=== PATIENT | female | born 1965 | race African-American/Black ===

== ENCOUNTER 2017-05-07 13:48 | Emergency (ER) | payer OTHER ==
[~2017-05-07] VITALS: Ht 160 cm; Wt 90.7 kg
[~2017-05-07 13:48] MED LIST: OLME20TA14 PO
--- NOTE | 2017-05-07 13:48 | NUR ---
Patient BIBA BLS, transferred to bed 7. RN evaluating patient at bedside.
--- NOTE | 2017-05-07 13:49 | NUR ---
51F BIBA FROM SNF C/O LEFT KNEE PAIN, NON-RADIATING, THROBBING, 6 X TODAY S/P FALL; PT STATES " I WAS TRYING TO CATCH THE GROCERSY BASKET AND FELL"; PT STATES NO LOC AT TIME OF FALL; NO SWELLING OR ERYTHEMA NOTED TO LEFT KNEE AT THIS TIME; LEFT PEDAL PULSE PALPABLE, LEFT CAP REFILL < 2 SECONDS, NO LOSS OF SENSATION TO LEFT LEG AT THIS TIME; PT NOTED WITH SMALL LACERATION TO ANTERIOR FOREHEAD AND SMALL ABRASION TO RT ELBOW; NO ACTIVE BLEEDING NOTED TO SITES AT THIS TIME. PT AA&OX4, PERRLA, BL LUNG SOUNDS CLEAR, RR EVEN/UNLABORED, SKIN IS WARM/DRY AT THIS TIME; PT STATES NO N/V/D AT THIS TIME. PT NOTED WITH PARALYSIS TO LEFT HAND FROM PREVIOUS STROKE. PT RESTING IN BED WITH HOB ELEVATED AND IN LOWEST POSITION; POSITIONED FOR COMFORT; ER MD MADE AWARE OF STATUS. WILL CONTIUE TO MONITOR.
--- NOTE | 2017-05-07 13:50 | NUR ---
Dr. Servin evaluating patient at bedside.
[2017-05-07 13:51] VITALS: BP 117/84
[2017-05-07] MEDS ORDERED: NEOMYCIN/POLYMYXIN/BACITRACIN 0.9 GM/1 PKT TP ONE (14:10)
--- NOTE | 2017-05-07 14:21 | NUR ---
PT TAKEN TO CT VIA W/C PER DIRECTOR PAID MEDIA.
[2017-05-07] MEDS ORDERED: ACETAMINOPHEN EXTRA STRENGTH 500 MG TAB PO ONE (15:35)
[2017-05-07 15:46] VITALS: BP 109/79
--- NOTE | 2017-05-07 15:46 | NUR ---
Patient discharged with v/s stable. Written and verbal after care instructions given and explained. Patient verbalized understanding. Wheel Chair Assisted to car. All questions addressed prior to discharge. Advised to follow up with PMD.
== END 2017-05-07 15:46 | disposition home or self-care (01) ==
LOC: MED 13:48
DX: S09.90XA Unspecified injury of head, initial encounter (principal); I10 Essential (primary) hypertension; Z86.73 Personal history of transient ischemic attack (TIA), and cerebral infarction without residual deficits; W18.30XA Fall on same level, unspecified, initial encounter; Y93.89 Activity, other specified; Y92.89 Other specified places as the place of occurrence of the external cause; Y99.8 Other external cause status
CPT/HCPCS: 70450; 99284

== ENCOUNTER 2017-06-28 12:57 | Emergency (ER) | payer OTHER ==
[~2017-06-28] VITALS: Ht 165.1 cm; Wt 90.3 kg
[~2017-06-28 12:57] MED LIST changes: -OLME20TA14 PO; +OLME20TA22 PO
--- NOTE | 2017-06-28 12:57 | NUR ---
Patient BIBA BLS, transferred to bed 4. RN evaluating patient at bedside.
[2017-06-28 13:05] VITALS: BP 151/98
--- NOTE | 2017-06-28 13:06 | NUR ---
Dr. Tripp evaluating patient at bedside.
[2017-06-28] MEDS ORDERED: HYDROmorphone PFS 2 MG/ML SYR IM ONE (13:20)
[2017-06-28] MEDS ORDERED: KETOROLAC 60 MG/2 ML VIAL IM ONE (13:20)
--- NOTE | 2017-06-28 13:20 | NUR ---
PATIENT IS A 51 YO FEMALE BIB EMS FROM [facility] AWAKE AND ALERT NO DEFORMITY OR SWELLING. TO BED 4 MD AT BEDSIDE
--- NOTE | 2017-06-28 13:59 | NUR ---
Patient taken to XRAY via wheelchair by tech.
--- NOTE | 2017-06-28 14:23 | NUR ---
Patient returned from XRAY. RN re-evaluating patient at bedside.
--- NOTE | 2017-06-28 15:18 | NUR ---
Immoblized and sling dispensed. Taught proper use, patient returned demo.
[2017-06-28 15:24] VITALS: BP 149/91
== END 2017-06-28 15:24 | disposition home or self-care (01) ==
LOC: MED 12:57
DX: M25.532 Pain in left wrist (principal); M79.642 Pain in left hand; Z86.73 Personal history of transient ischemic attack (TIA), and cerebral infarction without residual deficits; I10 Essential (primary) hypertension
CPT/HCPCS: 29125; 73110; 73130; 96372; 99284; J1170; J1885

== ENCOUNTER 2018-02-13 19:50 | Inpatient (IN) | payer OTHER ==
[~2018-02-13] VITALS: Ht 162.6 cm; Wt 99.3 kg
[2018-02-13 19:50] VITALS: BP 111/63
[~2018-02-13 19:50] MED LIST changes: +OLME20TA11 PO; -OLME20TA22 PO
--- NOTE | 2018-02-13 19:50 | NUR ---
PT GAGANDEEP BLS. TAKEN TO BED 6
--- NOTE | 2018-02-13 19:50 | NUR ---
PATIENT PRESENTS TO ED WITH SYNCOPAL EPISODE AT HOME. PT STATES SHE WOKE UP ON THE FLOOR AT HOME. NOW C/O RIGHT THUMB AND LEFT ANKLE PAIN. DENIES N/V/D; SKIN IS PINK/WARM/DRY; AAOX4; UNABLE TO AMBULATE; LUNGS CLEAR BL; HR EVEN AND REGULAR; PT DENIES ANY FEVER, CP, SOB, OR COUGH AT THIS TIME; PATIENT STATES PAIN OF 6/10 AT THIS TIME; VSS; PATIENT POSITIONED FOR COMFORT; HOB ELEVATED; BEDRAILS UP X2; BED DOWN. ER MD MADE AWARE OF PT STATUS. CONTINUE TO MONITOR.
--- NOTE | 2018-02-13 20:48 | NUR ---
PT TAKEN TO XRAY
--- NOTE | 2018-02-13 21:02 | NUR ---
PT RETURN FROM XRAY
[2018-02-13 21:21] LABS: BASOPHILS # (AUTO) 0.1 K/uL (0.00-0.22); BASOPHILS % (AUTO) 0.6 % (0.0-2.0); EOSINOPHILS # (AUTO) 0.2 K/uL (0-0.4); HEMATOCRIT 41.3 % (36-48); LYMPHOCYTES # (AUTO) 2.1 K/uL (2.5-16.5); LYMPHOCYTES % (AUTO) 22.8 % (20.5-51.1); MEAN CORPUSCULAR HEMOGLOBIN 29 pg (27-31); MEAN CORPUSCULAR HGB CONC 34 g/dL (33-37); MEAN CORPUSCULAR VOLUME 84.3 fL (80-94); MONOCYTES # (AUTO) 0.4 K/uL (0.8-1.0); MONOCYTES % (AUTO) 4.9 % (1.7-9.3); NEUTROPHILS # (AUTO) 6.3 K/uL (1.8-7.7); NEUTROPHILS % (AUTO) 69.7 % (42.2-75.2); PLATELET COUNT (AUTO) 256 K/uL (140-450); RED CELL DISTRIBUTION WIDTH 12.6 % (11.6-13.7)
[2018-02-13 22:03] LABS: ANION GAP 14.4 (8-16); CREATININE 0.9 mg/dL (0.6-1.3); POTASSIUM 3.4 mmol/L (3.5-5.1)
[2018-02-13 22:20] LABS: TOTAL BILIRUBIN 0.2 mg/dL (0.0-1.0)
[2018-02-13 22:21] LABS: ALBUMIN 3.6 g/dL (3.4-5.0)
--- NOTE | 2018-02-13 23:25 | NUR ---
Dr. Flores evaluating patient at bedside.
[2018-02-14] MEDS ORDERED: POLYETHYLENE GLYCOL 17 GM/PKT PO ONE (00:20)
[2018-02-14 01:42] LABS: APPEARANCE,URINE HAZY (CLEAR); BILIRUBIN,URINE NEGATIVE (NEGATIVE); BLOOD, URINE NEGATIVE (NEGATIVE); COLOR,URINE YELLOW (YELLOW); LEUKOCYTE ESTERASE ,URINE NEGATIVE (NEGATIVE); NITRITE, URINE NEGATIVE (NEGATIVE); UGLUCOSE NEGATIVE (NEGATIVE)
[2018-02-14 01:50] LABS: RBC,URINE 0-5 (RARE) /HPF (0-5)
[2018-02-14] MEDS ORDERED: PIPERACILLIN/TAZOBACTAM 3.375 GM in DEXTROSE 5% 50 ML IV ONE (02:55)
[2018-02-14] MEDS ORDERED: NACL 0.9% 1,000 ML IV ONE (02:55)
[2018-02-14] MEDS ORDERED: PIPERACILLIN/TAZOBACTAM 3.375 GM VIAL IV ONE (03:15)
[2018-02-14] MEDS ORDERED: ACETAMINOPHEN 325 MG TAB PO PRN (03:45)
[2018-02-14] MEDS ORDERED: MORPHINE SULFATE 4 MG/ML SYR IVP PRN (03:45)
[2018-02-14] MEDS ORDERED: MORPHINE SULFATE 2 MG/ML SYR IVP PRN (03:45)
[2018-02-14] MEDS ORDERED: METOCLOPRAMIDE 10 MG/2 ML INJ VIAL IVP PRN (03:45)
--- NOTE | 2018-02-14 04:15 | NUR ---
RECEIVED A 52 Y/O FEMALE PATIENT FROM WITH CHIEF COMPLAIN OF SYNCOPE. PATIENT IS A&OX4, AMBULATORY WITH LEFT SIDED WEAKNESS. SKIN INTACT. MRSA NASAL DONE. PERSONAL BELONGINGS AT BEDSIDE. ROUTINE ADMISSION CARE DONE AND CARRY OUT ORDERS. DISCUSS PLAN OF CARE TO THE PATIENT AND VERBALIZED UNDERSTANDING. FALL PRECAUTION IMPLEMENTED. CALL LIGHT WITHIN REACH. ALL NEEDS ATTENDED. WILL CONTINUE TO MONITOR.
--- NOTE | 2018-02-14 04:27 | NUR ---
Pt report given to Maria Esther RN room 105A. Transfer of care at this time.
[2018-02-14] MEDS: NACL 0.9% 1,000 ML IV SCH ×2 (04:39→13:41)
--- NOTE | 2018-02-14 06:43 | NUR ---
PATIENT HAS BEEN SCREENED AND CATEGORIZED LOW NUTRITION RISK. PATIENT WILL BE SEEN WITHIN 7 DAYS OF ADMISSION. 02/20/18 ALEJANDRO CHEN MS, RDN
--- NOTE | 2018-02-14 07:30 | NUR ---
GAVE REPORT AT PATIENT BEDSIDE TO AM SHIFT NURSE FOR CONTINUITY OF CARE. PATIENT IN STABLE CONDITION.
--- NOTE | 2018-02-14 07:35 | NUR ---
RECEIVED PT FROM LOG HANDLER, PT IS AWAKE ,LYING ON THE BED, AWAKE, ALERT AND ORIENTEDX4, CARE PLAN HAS BEEN DISCUSSED AND PT VERBALIZED UNDERSTANDING. PT HAS AN IV LINE ON THE LEFT HAND G. 22 WITH NS RUNNING AT 100ML/HR, INTACT.SIDE RAILS ARE UP AND CALL LIGHT WITHIN REACH. NO SIGN OF DISTRESS NOTED AND WILL CONTINUE TO MONITOR. PT IS ON NPO OF THIS TIME.
--- NOTE | 2018-02-14 07:50 | NUR ---
ASSISTED PT TO THE BATHROOM TO SILVERE, PT HAS AN UNSTEADY GAIT AND HAS WEAKNESS ON HER LEFT SIDE. PT WAS ASSISTED BACK TO BED AND A BEDSIDE COMMODE WAS PLACED. SIDE RAILS ARE UP AND CALL LIGHT WITHIN REACH. WILL CONTINUE TO MONITOR.
[2018-02-14 08:00] VITALS: BP 140/88
--- NOTE | 2018-02-14 08:00 | NUR ---
PT IS AWAKE AND TALKING OVER THE PHONE, LEADS FOR THE HEART WERE CHECKED AND CHANGED. VITAL SIGNS TAKEN AND IS STABLE. NO SIGN OF DISTRESS NOTED AND WILL CONTINUE TO MONITOR.
[2018-02-14 12:00] VITALS: BP 139/57
--- NOTE | 2018-02-14 12:01 | NUR ---
RECEIVED A CALL FROM DR. PAZ AND ASKED THE MD REGARDING THE PT' BEING ON NPO. DR. PAZ ORDERED A CLEAR LIQUID DIET FOR THE PT AND TOLD TO OBSERVE. TELEPHONE ORDER ACKNOWLEDGED AND READ BACK.
--- NOTE | 2018-02-14 12:17 | NUR ---
PT IS AWAKE AND VERBALIZED A PAIN RATE OF 8/10. MEDICATION GIVEN AND PT TOLERATED IT. VITAL SIGNS TAKEN AND NO SIGN OF DISTRESS NOTED. WILL CONTINUE TO MONITOR.
--- NOTE | 2018-02-14 14:16 | NUR ---
DR. PAZ SPOKE AND ASSESSED THE PT, AND PT RESPONDED APPROPRIATELY. DR. PAZ SAID THAT IF PT CAN TOLERATE THE CLEAR LIQUID DIET WITH NO NAUSEA AND VOMITING, THE PT CAN GO HOME AND WILL JUST SEE HER IN HIS CLINIC. 'S STATEMENT ACKNOWLEDGED.
--- NOTE | 2018-02-14 14:25 | NUR ---
DR. LARIOS SAW AND SPOKE TO THE PT. PT HAS NO SIGN OF DISTRESS.
--- NOTE | 2018-02-14 14:52 | NUR ---
ACKNOWLEDGED A DISCHARGE ORDER FOR THE PT FROM DR. LARIOS. WILL FACILITATE DISCHARGE PROCESS.
[2018-02-14 16:00] VITALS: BP 140/90
--- NOTE | 2018-02-14 16:00 | NUR ---
PT IS AWAKE AND SEATED ON THE BED, VITAL SIGNS TAKEN AND IS STABLE. NO SIGN OF DISTRESS NOTED. WILL MONITOR.
--- NOTE | 2018-02-14 17:30 | NUR ---
PT IS AWAKE AND SEATED ON THE BED, ASKED FOR A SANDWICH AND WAS GIVEN ONE. PT TOLERATED IT WITH NO SIGN OF NAUSEA AND VOMITING.
--- NOTE | 2018-02-14 18:00 | NUR ---
DISCHARGED PT VIA WHEELCHAIR WITH THE SON-IN-LAW. DISCHARGE INSTRUCTIONS AND TEACHING GIVEN. ARM BAND AND IV LINE REMOVED. PT IS STABLE AND PAIN FREE AT THIS TIME.
--- NOTE | 2018-02-16 09:01 | NUR ---
RETRO ER REPORT, H&P AND CONSULT FAXED TO [facility] [phone] PHONE MACARIO [phone]
== END 2018-02-14 18:00 | disposition home or self-care (01) | DRG 244 ==
LOC: MED 19:50 → MTU 02-14 03:41
PROVIDERS: ADMIT Hospitalist; ATTEND Hospitalist
DX: K57.90 Diverticulosis of intestine, part unspecified, without perforation or abscess without bleeding (principal); R56.9 Unspecified convulsions; R10.9 Unspecified abdominal pain; R55 Syncope and collapse; I10 Essential (primary) hypertension; E66.9 Obesity, unspecified; F17.210 Nicotine dependence, cigarettes, uncomplicated; F12.90 Cannabis use, unspecified, uncomplicated; Z86.73 Personal history of transient ischemic attack (TIA), and cerebral infarction without residual deficits; Z68.37 Body mass index [BMI] 37.0-37.9, adult; Z79.899 Other long term (current) drug therapy
CPT/HCPCS: 36415; 70450; 71046; 73130; 80053; 81001; 83880; 84484; 85025; 85379; 87081; 87086; 93005; 96365; 99285; J2270; J2543; J7030

== ENCOUNTER 2018-03-14 22:30 | Emergency (ER) | payer OTHER ==
[~2018-03-14] VITALS: Ht 165.1 cm; Wt 89.5 kg
[2018-03-14 22:39] VITALS: BP 147/90
--- NOTE | 2018-03-14 22:43 | NUR ---
TO BED #6 VIA SCOOTER , REPORT GIVEN TO AYE SHUKLA
--- NOTE | 2018-03-14 22:50 | NUR ---
PT BIB SELF C/O HEADACHE, S/P FALL FROM ELECTRIC WHEELCHAIR YESTERDAY. PT GCS 15, PERRLA 3/2MM BILAT. PT STATES SHE HAD A STROKE 7 YEARS AGO, WITH LEFT ARM DEFICITS. PT STATES LEFT ARM IS CONTRACTED, UNABLE TO OPEN LEFT HAND. NO FACIAL ASYMMETRY NOTED, NO DROOLING, NO POOLING OF SECRETIONS. NO TONGUE DEVIATION, NO SLURRING OF SPEECH, PT ABLE TO TALKING IN FULL COMPLETE SENTENCES WITHOUT ANY COMPLAINT. PT WAS ABLE TO STAND AND WALK 5 STEPS FORWARD WITH STEADY GAIT. PT ALERT AND ORIENTED, ABLE TO FOLLOW COMMANDS. PT PLACED IN BED 6. HR 85 BPM, ON CM. PT BREATHING IS UNLABORED AND EVEN, CTA, BILAT. PT ABD IS SOFT, NON TENDER TO PALP. SIDE RAILS UP X2 FOR PT SAFETY. BED IN LOWEST POSITION. WILL CONTINUE TO MONITOR
[2018-03-14] MEDS ORDERED: KETOROLAC 30 MG/ML VIAL IM ONE (23:05)
--- NOTE | 2018-03-15 00:50 | NUR ---
Patient discharged with v/s stable. Written and verbal after care instructions given and explained. Patient alert, oriented and verbalized understanding of instructions. Wheel Chair Assisted with steady gait. All questions addressed prior to discharge. ID band removed. Patient advised to follow up with PMD. Rx of motrin 800mg given. Patient educated on indication of medication including possible reaction and side effects. Opportunity to ask questions provided and answered.
[2018-03-15 00:51] VITALS: BP 132/78
== END 2018-03-15 00:50 | disposition home or self-care (01) ==
LOC: MED 22:30
DX: S09.90XA Unspecified injury of head, initial encounter (principal); E11.9 Type 2 diabetes mellitus without complications; I10 Essential (primary) hypertension; Z86.73 Personal history of transient ischemic attack (TIA), and cerebral infarction without residual deficits; Z79.899 Other long term (current) drug therapy; W05.0XXA Fall from non-moving wheelchair, initial encounter; Y93.89 Activity, other specified; Y92.89 Other specified places as the place of occurrence of the external cause; Y99.8 Other external cause status
CPT/HCPCS: 70450; 96372; 99284; J1885

== ENCOUNTER 2018-05-24 19:22 | Emergency (ER) | payer OTHER ==
[~2018-05-24] VITALS: Ht 167.6 cm; Wt 86.2 kg
[2018-05-24 19:22] VITALS: BP 107/66
[2018-05-24] MEDS ORDERED: PHENYTOIN 100 MG CAPER PO ONE (19:55)
[2018-05-24 20:27] LABS: BASOPHILS % (AUTO) 0.6 % (0.0-2.0); EOSINOPHILS # (AUTO) 0.2 K/uL (0-0.4); EOSINOPHILS % (AUTO) 2.7 % (0.0-4.0); HEMATOCRIT 41.1 % (36-48); HEMOGLOBIN 13.5 g/dL (12.0-16.0); LYMPHOCYTES # (AUTO) 1.9 K/uL (2.5-16.5); LYMPHOCYTES % (AUTO) 25.4 % (20.5-51.1); MEAN CORPUSCULAR HEMOGLOBIN 29 pg (27-31); MEAN CORPUSCULAR HGB CONC 33 g/dL (33-37); MEAN CORPUSCULAR VOLUME 86.8 fL (80-94); MONOCYTES # (AUTO) 0.5 K/uL (0.8-1.0); MONOCYTES % (AUTO) 6.8 % (1.7-9.3); NEUTROPHILS # (AUTO) 4.9 K/uL (1.8-7.7); NEUTROPHILS % (AUTO) 64.5 % (42.2-75.2); PLATELET COUNT (AUTO) 233 K/uL (140-450); RED BLOOD CELL COUNT(AUTO) 4.73 MIL/uL (4.20-5.40); RED CELL DISTRIBUTION WIDTH 13.9 % (11.6-13.7); WHITE BLOOD COUNT (AUTO) 7.7 K/uL (4.8-10.8)
[2018-05-24 20:36] LABS: ANION GAP 11.1 (8-16); CARBON DIOXIDE 26.6 mmol/L (21-32); CREATININE 0.9 mg/dL (0.6-1.3); POTASSIUM 3.7 mmol/L (3.5-5.1)
[2018-05-24] MEDS ORDERED: MORPHINE SULFATE 4 MG/ML SYR IVP ONE (20:45)
[2018-05-24] MEDS ORDERED: ONDANSETRON 4 MG/2 ML VIAL IVP ONE (20:45)
[2018-05-24 22:51] VITALS: BP 123/79
== END 2018-05-24 22:51 | disposition home or self-care (01) ==
LOC: MED 19:22
DX: G40.509 Epileptic seizures related to external causes, not intractable, without status epilepticus (principal); E11.9 Type 2 diabetes mellitus without complications; I10 Essential (primary) hypertension; Z86.73 Personal history of transient ischemic attack (TIA), and cerebral infarction without residual deficits; Z79.899 Other long term (current) drug therapy
CPT/HCPCS: 36415; 71045; 80048; 80185; 82948; 85025; 93005; 96374; 96375; 99285; J2270; J2405; Q0092

== ENCOUNTER 2019-02-10 13:15 | Emergency (ER) | payer OTHER ==
[~2019-02-10] VITALS: Ht 172.7 cm; Wt 113.6 kg
[2019-02-10 13:32] VITALS: BP 147/82
--- NOTE | 2019-02-10 13:32 | NUR ---
pt to er bed 8 via w/c
--- NOTE | 2019-02-10 13:42 | NUR ---
PT BIB SELF VIA W/C C/O LT FOOT/LEG PAIN X 2 WEEKS. PT WAS SEEN AT [facility] 3 DAYS AGO FOR SAME S/S. PT DENIES N/V/D; SKIN IS INTACT, PALE/WARM/DRY; AAOX4, PERRL, UNSTEADY GAIT- 10/10 PAIN LT FOOT/LEG WITH +4 PITTED EDEMA; LUNGS CLEAR BL, BREATHING UNLABORED; HR EVEN AND REGULAR, BL PERIPHERAL PULSES PRESENT; BS ACTIVE X4, NO TENDERNESS TO PALPATION. PT DENIES ANY FEVER, CP, SOB, OR COUGH AT THIS TIME; PT STATES 10/10 PAIN AT THIS TIME; VSS; PATIENT POSITIONED FOR COMFORT; HOB ELEVATED; BEDRAILS UP X2; BED DOWN.
--- NOTE | 2019-02-10 13:53 | NUR ---
PT BEING EVALUATED BY ER AT THIS TIME.
--- NOTE | 2019-02-10 15:50 | NUR ---
PT APPEARED RELAXED AND RESTING IN BED. NO SOB OR ACUTE RESPIRATORY DISTRESS NOTED. NO CHANGE IN LOC. VSS.
--- NOTE | 2019-02-10 16:46 | NUR ---
Patient discharged with v/s stable. Written and verbal after care instructions given and explained. Patient alert, oriented and verbalized understanding of instructions. All questions addressed prior to discharge. ID band removed. Patient advised to follow up with PMD. Rx of NORCO 5MG-325MG given. Patient educated on indication of medication including possible reaction and side effects. Opportunity to ask questions provided and answered.
[2019-02-10 16:49] VITALS: BP 156/99
== END 2019-02-10 16:46 | disposition home or self-care (01) ==
LOC: MED 13:15
DX: S92.355A Nondisplaced fracture of fifth metatarsal bone, left foot, initial encounter for closed fracture (principal); E11.9 Type 2 diabetes mellitus without complications; I10 Essential (primary) hypertension; Z86.73 Personal history of transient ischemic attack (TIA), and cerebral infarction without residual deficits; Z79.899 Other long term (current) drug therapy; X58.XXXA Exposure to other specified factors, initial encounter; Y93.89 Activity, other specified; Y92.89 Other specified places as the place of occurrence of the external cause; Y99.8 Other external cause status
CPT/HCPCS: 29515; 73610; 73630; 99283; Q0092

== ENCOUNTER 2019-04-03 16:42 | Emergency (ER) | payer OTHER ==
[~2019-04-03] VITALS: Ht 165.1 cm; Wt 89.0 kg
[2019-04-03 16:48] VITALS: BP 137/89
[2019-04-03] MEDS ORDERED: methylPREDNISolone SS 125 MG in WATER STERILE 2 ML IV ONE (16:55)
[2019-04-03] MEDS ORDERED: diphenhydrAMINE 50 MG/ML VIAL IVP ONE (16:55)
[2019-04-03] MEDS ORDERED: EPINEPHrine 1:1000 - 1 MG/ML AMP SUBQ ONE (16:55)
--- NOTE | 2019-04-03 17:00 | NUR ---
PT AMBULATED TO BED 7 AT THIS TIME
[2019-04-03] MEDS ORDERED: LIDOCAINE 1% 500 MG/50 ML VIAL INJ SCH ×2 (17:20→17:25)
[2019-04-03] MEDS ORDERED: ETHYL CHLORIDE 105 ML SPR TP ONE ×2 (17:20→17:30)
--- NOTE | 2019-04-03 17:22 | NUR ---
ETHYL CHLORIDE AND LIDOCAINE AT BEDSIDE FOR ERMD TO ADMINISTER
--- NOTE | 2019-04-03 17:26 | NUR ---
PT C/O RT 1ST DIGIT PAIN X4 DAYS. PT REPORTS CONSTANT 10/10 THROBING PAIN THAT INCREASES WITH MOVEMENT. BASE OF THUMB IS SWOLLEN WITH REDNESS. DENIES NAUSEA, VOMITING, OR FEVER AT THIS TIME. VSS; PATIENT POSITIONED FOR COMFORT; HOB ELEVATED; BEDRAILS UP X1; BED DOWN. ER MD MADE AWARE OF PT STATUS.
[2019-04-03] MEDS ORDERED: LIDOCAINE MPF 1% - 5 mL VIAL 5 ML ONE (17:31)
[2019-04-03 18:00] VITALS: BP 121/80
--- NOTE | 2019-04-03 18:00 | NUR ---
Pt was discharged by Dr. Hamilton with v/s stable. Written and verbal after care instructions given and explained. Patient alert, oriented and verbalized understanding of instructions. Ambulatory with steady gait. All questions addressed prior to discharge. ID band removed. Patient advised to follow up with PMD. Rx of Keflex given. Patient educated on indication of medication including possible reaction and side effects. Opportunity to ask questions provided and answered.
== END 2019-04-03 18:00 | disposition home or self-care (01) ==
LOC: MED 16:42
DX: L03.011 Cellulitis of right finger (principal); I10 Essential (primary) hypertension; E11.9 Type 2 diabetes mellitus without complications; I69.952 Hemiplegia and hemiparesis following unspecified cerebrovascular disease affecting left dominant side; Z86.79 Personal history of other diseases of the circulatory system; Z79.899 Other long term (current) drug therapy
CPT/HCPCS: 10060; 99283; J2001

== ENCOUNTER 2020-01-05 01:10 | Emergency (ER) | payer OTHER ==
[~2020-01-05] VITALS: Ht 157.5 cm; Wt 68.0 kg
[2020-01-05 01:10] VITALS: BP 129/69
--- NOTE | 2020-01-05 01:10 | NUR ---
PT GAGANDEEP KOEHLERS. TAKEN TO BED 4
--- NOTE | 2020-01-05 01:10 | NUR ---
Dr. Yeung examining patient.
[2020-01-05] MEDS ORDERED: MORPHINE SULFATE 4 MG/ML SYR IM ONE (01:15)
--- NOTE | 2020-01-05 01:15 | NUR ---
ASSESSMENT DONE AT THIS TIME. 54 YEAR OLD FEMALE BIBA AFTER MECHANICAL FALL X 20MINS AGO. PER PATIENT SHE FELT THAT SHE HEARD A POP WHEN TRYING TO BREAK FALL WITH LEFT ARM. PATIENT STATES THERE IS PAIN THROUGHOUT LEFT ARM BUT MOSTLY AROUND WRIST AREA. PATIENT STATES SHE DOES NOT REMEMBER IF LOC, NO WITNESSES TO FALL. PT STATES SHE IS UNABLE TO MOVE LEFT ARM DUE TO STROKE X 10 YEARS AGO. PT STATES SHE HAS SENSATION IN LEFT HAND, +2 RADIAL PULSE, CAP REFILL < 3 SECS. PATIENT AOX4, BREATHING EVEN AND UNLABORED, SKIN WARM AND DRY. BED IN LOWEST POSITION, LOCKED, BED RAIL UPX1. PMH - HTN, STROKE X 10 YEARS AGO ALLERGIES - NKA
[2020-01-05] MEDS ORDERED: MORPHINE SULFATE 4 MG/ML SYR ONE (01:21)
--- NOTE | 2020-01-05 01:26 | NUR ---
Jem shepherd in [facility] - 01/05/20 at 0127 by JESSE AMANDA AT BEDSIDE
--- NOTE | 2020-01-05 01:26 | NUR ---
X-Ray at bedside.
--- NOTE | 2020-01-05 01:47 | NUR ---
Note meganone in EDM - 01/05/20 at 0225 by PadletISAIAS 54 YEAR OLD FEMALE BIBA AFTER MECHANICAL FALL X 20MINS AGO. PER PATIENT SHE FELT THAT SHE HEARD A POP WHEN TRYING TO BREAK FALL WITH LEFT ARM. PATIENT STATES THERE IS PAIN THROUGHOUT LEFT ARM BUT MOSTLY AROUND WRIST AREA. PATIENT STATES SHE DOES NOT REMEMBER IF LOC, NO WITNESSES TO FALL. PT STATES SHE IS UNABLE TO MOVE LEFT ARM DUE TO STROKE X 10 YEARS AGO. PT STATES SHE HAS SENSATION IN LEFT HAND, +2 RADIAL PULSE, CAP REFILL < 3 SECS. PATIENT AOX4, BREATHING EVEN AND UNLABORED, SKIN WARM AND DRY. BED IN LOWEST POSITION, LOCKED, BED RAIL UPX1. PMH - HTN, STROKE X 10 YEARS AGO ALLERGIES - NKA
--- NOTE | 2020-01-05 02:50 | NUR ---
Patient discharged with v/s stable. Written and verbal after care instructions about wrist fracture given and explained. Patient alert, oriented and verbalized understanding of instructions. Ambulatory with steady gait. All questions addressed prior to discharge. ID band removed. Patient advised to follow up with PMD. Rx of motrin and norco given. Patient educated on indication of medication including possible reaction and side effects. Opportunity to ask questions provided and answered.
--- NOTE | 2020-01-05 02:50 | NUR ---
[facility] CALLED FOR PT, STATES THEY WILL NEED ATLEAST AN HOUR TO ARRIVE.
--- NOTE | 2020-01-05 03:00 | NUR ---
PATIENT ALERT AND AWAKE, BREATHING EVEN AND UNLABORED. + 2 RADIAL PULSE IN LEFT ARM AFTER SLING APPLICATION, CAP REFILL < 3 SEC
--- NOTE | 2020-01-05 03:25 | NUR ---
PLACED PT IN SINGLE SUGARTONG SPLINT ON PT'S LEFT WRIST AND WRAPED WITH 3" LOLA WRAP. CHECKED PMSC'S BEFORE AND AFTER WITHOUT INCIDENT, ALSO PLACED PT IN SLING TO IMMOBILZE EXTREMITY, PLACED PT IN POSITON OF COMFORT WITHOUT INCIDENT.
--- NOTE | 2020-01-05 04:00 | NUR ---
PATIENT RESTING WITH EYES CLOSED, BREATHING EVEN AND UNLABORED
--- NOTE | 2020-01-05 05:22 | NUR ---
PATIENT RESTING WITH EYES CLOSED, BREATHING EVEN AND UNLABORED
--- NOTE | 2020-01-05 05:39 | NUR ---
PT STATES SHE WOULD RATHER WALK HOME NOW BECAUSE IT IS NOT DARK OUTSIDE AND DOES NOT WANT A TAXI
[2020-01-05 05:40] VITALS: BP 152/92
--- NOTE | 2020-01-05 05:44 | NUR ---
PT LEFT FACILITY WITH EVEN AND STEADY GAIT.
== END 2020-01-05 02:05 | disposition home or self-care (01) ==
LOC: MED 01:10
DX: S52.502A Unspecified fracture of the lower end of left radius, initial encounter for closed fracture (principal); E11.9 Type 2 diabetes mellitus without complications; I10 Essential (primary) hypertension; Z86.73 Personal history of transient ischemic attack (TIA), and cerebral infarction without residual deficits; Z79.899 Other long term (current) drug therapy; W18.30XA Fall on same level, unspecified, initial encounter; Y93.89 Activity, other specified; Y92.89 Other specified places as the place of occurrence of the external cause; Y99.8 Other external cause status
CPT/HCPCS: 29125; 73090; 99283; J2270; Q0092

== ENCOUNTER 2020-03-05 16:24 | Emergency (ER) | payer OTHER ==
[~2020-03-05] VITALS: Ht 165.1 cm; Wt 95.3 kg
[2020-03-05 16:50] VITALS: BP 125/69
--- NOTE | 2020-03-05 16:59 | NUR ---
PT AMBULATED TO ER BED 11
[2020-03-05] MEDS ORDERED: KETOROLAC 30 MG/ML VIAL IM ONE (17:10)
--- NOTE | 2020-03-05 17:21 | NUR ---
c/o right ear pain cotton ball left in there after cleaning ear with q-tip;
[2020-03-05 17:48] VITALS: BP 125/69
--- NOTE | 2020-03-05 17:48 | NUR ---
Patient discharged with v/s stable. Written and verbal after care instructions given and explained. Patient alert, oriented and verbalized understanding of instructions. Ambulatory with steady gait. All questions addressed prior to discharge. ID band removed. Patient advised to follow up with PMD. Rx of AUGMENTIN & IBUPROFEN given. Patient educated on indication of medication including possible reaction and side effects. Opportunity to ask questions provided and answered.
== END 2020-03-05 17:48 | disposition home or self-care (01) ==
LOC: MED 16:24
DX: T16.1XXA Foreign body in right ear, initial encounter (principal); H66.91 Otitis media, unspecified, right ear; E11.9 Type 2 diabetes mellitus without complications; I10 Essential (primary) hypertension; Z86.73 Personal history of transient ischemic attack (TIA), and cerebral infarction without residual deficits; Z79.899 Other long term (current) drug therapy; X58.XXXA Exposure to other specified factors, initial encounter; Y93.89 Activity, other specified; Y92.89 Other specified places as the place of occurrence of the external cause; Y99.8 Other external cause status
CPT/HCPCS: 69200; 96372; 99284; J1885

== ENCOUNTER 2020-04-28 16:31 | Emergency (ER) | payer OTHER ==
[~2020-04-28] VITALS: Ht 160 cm; Wt 90.7 kg
--- NOTE | 2020-04-28 16:31 | NUR ---
Patient BIBA BLS, transferred to bed 10. RN evaluating the patient at bedside.
[2020-04-28 16:46] VITALS: BP 137/94
--- NOTE | 2020-04-28 16:46 | NUR ---
54 Y/O F BIBA FROM HOME C/C HEADACHE X TODAY. PER PT WORSE HEADACHE OF HER LIFE, 10/10 PAIN, FRONTAL AREA. PT PRESENTS VSS,EUPNIC,A/OX4. LEFT SIDED WEAKNESS NOTED ON LUE AND LLE. PER EMS AND PT HX OF STROKE 8 YEARS AGO. PT NKA. HX HTN,SZ,STROKE HEMORRAGHIC. RX DILANTIN,BENALOPRIL. NO NVD. SIDE RAIL X2.
[2020-04-28 16:55] VITALS: BP 137/94
--- NOTE | 2020-04-28 16:55 | NUR ---
Patient does not wish to proceed with medical care recommended by PAGE. Patient given information related to possible complications, up to and including , which could occur as a result of leaving hospital at this time. Patient verbalizes understanding of risks involved leaving against medical advice. Patient has signed AMA form.
== END 2020-04-28 16:55 | disposition left against medical advice (07) ==
LOC: MED 16:31
DX: R51 Headache (principal); I11.0 Hypertensive heart disease with heart failure; Z86.73 Personal history of transient ischemic attack (TIA), and cerebral infarction without residual deficits; Z79.899 Other long term (current) drug therapy
CPT/HCPCS: 99281

== ENCOUNTER 2020-04-30 17:52 | Emergency (ER) | payer OTHER ==
[~2020-04-30] VITALS: Ht 167.6 cm; Wt 95.3 kg
[2020-04-30 17:56] VITALS: BP 163/98
--- NOTE | 2020-04-30 18:15 | NUR ---
C/O L FOOT PAIN, EDEMA, SLIGHT ERYTHEMA, AND REDUCED ROM ON LEFT ANKLE AND FOOT S/P CHAIR FELL ON HER LEFT FOOT APPROX 1 HOUR AGO. DENIES N/V/D; SKIN IS PINK/WARM/DRY; AAOX4 WITH EVEN AND STEADY GAIT; PT DENIES ANY FEVER, CP, SOB, OR COUGH AT THIS TIME; PATIENT STATES PAIN OF 10/10 AT THIS TIME; VSS; PATIENT POSITIONED FOR COMFORT; HOB ELEVATED; BEDRAILS UP X1; BED DOWN. ER MD MADE AWARE OF PT STATUS.
--- NOTE | 2020-04-30 18:16 | NUR ---
XRAY IS AT BEDSIDE.
[2020-04-30] MEDS ORDERED: KETOROLAC 30 MG/ML VIAL IM ONE (18:35)
--- NOTE | 2020-04-30 19:06 | NUR ---
RECEIVED REPORT FROM GAYLA SHINE FOR CONTINUITY OF CARE.
--- NOTE | 2020-04-30 19:07 | NUR ---
Pt report given to GAYLA Colon. Transfer of care at this time.
--- NOTE | 2020-04-30 19:11 | NUR ---
EMT AT BEDSIDE PUTTING SPLINT.
--- NOTE | 2020-04-30 19:15 | NUR ---
PTS BIG AND SECOND TOE BUDY TAPED. PTS PMSC WNL. ORTHO SHOE PLACED ON PTS FOOT.
[2020-04-30 19:19] VITALS: BP 145/96
--- NOTE | 2020-04-30 19:20 | NUR ---
Patient discharged with v/s stable. Written and verbal after care instructions given and explained. Patient alert, oriented and verbalized understanding of instructions. Wheel Chair Assisted with to car. All questions addressed prior to discharge. ID band removed. Patient advised to follow up with PMD. Rx of NORCO given. Patient educated on indication of medication including possible reaction and side effects. Opportunity to ask questions provided and answered.
== END 2020-04-30 19:20 | disposition home or self-care (01) ==
LOC: MED 17:52
DX: S92.912A Unspecified fracture of left toe(s), initial encounter for closed fracture (principal); X50.9XXA Other and unspecified overexertion or strenuous movements or postures, initial encounter; Y93.89 Activity, other specified; Y92.89 Other specified places as the place of occurrence of the external cause; Y99.8 Other external cause status
CPT/HCPCS: 73590; 73630; 96372; 99284; J1885; Q0092

== ENCOUNTER 2020-05-11 14:22 | Emergency (ER) | payer OTHER ==
[~2020-05-11] VITALS: Ht 165.1 cm; Wt 99.3 kg
--- NOTE | 2020-05-11 14:38 | NUR ---
wheelchaired to room 3.
--- NOTE | 2020-05-11 14:40 | NUR ---
1 week left knee and ankle pain. 06/03 took norco this am with no relief.Pt aox 4 , afibrile , ambulatory with assistance, left foot edema plus 1 non pitting , left knee pain , denies truama.with limitation of rom , stroke left topher 2001. pmhxs seizure and htn
[2020-05-11 14:42] VITALS: BP 156/72
--- NOTE | 2020-05-11 15:16 | NUR ---
dr candelaria at bedside evaluating pt.
[2020-05-11] MEDS ORDERED: MORPHINE SULFATE 2 MG/ML SYR IM ONE (15:35)
--- NOTE | 2020-05-11 15:40 | NUR ---
xray at bedside.
--- NOTE | 2020-05-11 16:05 | NUR ---
DR KAMINSKI AT BEDSIDE REEVALUATING PT.
--- NOTE | 2020-05-11 16:31 | NUR ---
PLACED POSTERIOR LEFT SHORT LEG SPLINT
[2020-05-11 16:58] VITALS: BP 156/72
--- NOTE | 2020-05-11 16:59 | NUR ---
Patient discharged with v/s stable. Written and verbal after care instructions given and explained regarding ankle sprain . Patient alert, oriented and verbalized understanding of instructions. Wheel Chair Assisted with to prison. All questions addressed prior to discharge. ID band removed. Patient advised to follow up with PMD. Rx of norco and narcan given. Patient educated on indication of medication including possible reaction and side effects. Opportunity to ask questions provided and answered.
== END 2020-05-11 16:59 | disposition home or self-care (01) ==
LOC: MED 14:22
DX: S93.492A Sprain of other ligament of left ankle, initial encounter (principal); I11.0 Hypertensive heart disease with heart failure; E11.9 Type 2 diabetes mellitus without complications; F17.210 Nicotine dependence, cigarettes, uncomplicated; Z71.6 Tobacco abuse counseling; Z86.73 Personal history of transient ischemic attack (TIA), and cerebral infarction without residual deficits; X50.9XXA Other and unspecified overexertion or strenuous movements or postures, initial encounter; Y93.89 Activity, other specified; Y92.89 Other specified places as the place of occurrence of the external cause; Y99.8 Other external cause status
CPT/HCPCS: 29515; 73610; 96372; 99283; J2270; Q0092

== ENCOUNTER 2021-06-15 12:47 | Emergency (ER) | payer OTHER ==
[~2021-06-15] VITALS: Ht 157.5 cm; Wt 106.6 kg
[2021-06-15 12:52] VITALS: BP 160/86
--- NOTE | 2021-06-15 13:11 | NUR ---
RATNA NORMAN AT BEDSIDE EXAMINING PT
--- NOTE | 2021-06-15 13:13 | NUR ---
55 Y/O F C/O L FOOT PAIN FOR 2 DAYS POST INJURY. PT STATES SHE HAD A DINNER TRAY FALL ON L FOOT, STATES HE HAS HAD HX OF FX ON SAME FOOT. PT AMBULATES, BUT UNABLE TO BEAR WEIGHT ON L EXTREMITY DUE TO PAIN AND HX OF L SIDE PARALYSIS FROM STROKE. PMH: HTN, STROKE, L SIDE PARALYSIS, BRAIN ANEURYSM NKA MED: BP MEDS, DILANTIN Addendum: 06/15/21 at 1319 by [facility] PATIENT REPORTS 06/03, SHARP/COSNTANT, RADIATING TO LEFT KNEE. "IT FEELS THE SAME TYPE OF PAIN FROM WHEN I BROKE IT BEFORE." PATIENT REPORTS IBUPROFEN AT 0800 UNKNOWN DOSE WITHOUT RELIEF. DENIES NUMBNESS, TINGLING, LOSS OF SENSATION. +PEDAL PULSES +CMS +SWELLING/TENDERNESS TO LEFT ANTERIOR FOOT.
[2021-06-15] MEDS ORDERED: HYDROcodone/APAP 7.5/325 MG 1 TAB PO ONE (13:20)
--- NOTE | 2021-06-15 13:35 | NUR ---
RAD AT BEDSIDE
--- NOTE | 2021-06-15 14:58 | NUR ---
PER ERMD PT RIGHT FOOT WAS WRAPED WITH AN LOLA WRAP.
[2021-06-15] MEDS ORDERED: ACET-8386 PO ×2 (14:59→15:13)
[2021-06-15 15:15] VITALS: BP 160/86
--- NOTE | 2021-06-15 15:15 | NUR ---
Patient discharged with v/s stable. Written and verbal after care instructions given and explained. Patient alert, oriented and verbalized understanding of instructions. Ambulatory with steady gait. All questions addressed prior to discharge. ID band removed. Patient advised to follow up with PMD. Rx of HYDROCODONE/ACETAMINOPHEN given. Patient educated on indication of medication including possible reaction and side effects. Opportunity to ask questions provided and answered.
== END 2021-06-15 15:15 | disposition home or self-care (01) ==
LOC: MED 12:47
DX: S93.602A Unspecified sprain of left foot, initial encounter (principal); E11.9 Type 2 diabetes mellitus without complications; I10 Essential (primary) hypertension; Z86.73 Personal history of transient ischemic attack (TIA), and cerebral infarction without residual deficits; Z79.899 Other long term (current) drug therapy; W20.8XXA Other cause of strike by thrown, projected or falling object, initial encounter; Y93.89 Activity, other specified; Y92.89 Other specified places as the place of occurrence of the external cause; Y99.8 Other external cause status
CPT/HCPCS: 73610; 73630; 99284; Q0092

== ENCOUNTER 2021-10-26 16:34 | Emergency (ER) | payer OTHER ==
[~2021-10-26] VITALS: Ht 162.6 cm; Wt 95.3 kg
[~2021-10-26 16:34] MED LIST changes: +ACET-8386 PO
--- NOTE | 2021-10-26 16:35 | NUR ---
Pt GAGANDEEP via gurney to bed 12.
[2021-10-26 16:43] VITALS: BP 151/86
--- NOTE | 2021-10-26 17:07 | NUR ---
X RAY AT THE BEDSIDE
--- NOTE | 2021-10-26 17:07 | NUR ---
55 Y/O FEMALE BIBA C/O LOSS OF BALANCE AND A FALL X TODAY. PT REPORTS FALLING ON HER LEFT ARM. A&O X 4, AMBULATE WITH A WHEELCHAIR. PT GIVEN FENTANYL BY EMS, PRESENTS WITH BOTH EYES CLOSED. STATES L WRIST PAIN 6/10, SHARP/CONSTANT, NON-RADIATING. L WRIST TENDER TO PALPATION WITH MILD SWELLING ANTERIOR WRIST. WORSENS WITH MOVEMENT; ALLEVIATES WITH REST. SKIN TEAR NOTED TO LEFT FOREARM NO BLEEDING NOTED. SKIN WNL TO ETHNICITY. DENIES LOC. BED LOCKED IN LOWEST POSITION, SIDE RAILS X 1. SEIZURE PRECAUTIONS IN PLACE. PMH/SX/MEDS: ANEURYSM NKDA
[2021-10-26] MEDS ORDERED: ACET-8386 PO (17:48)
--- NOTE | 2021-10-26 18:03 | NUR ---
Sugartong splint placed on Pt's left, RATNA Spivey made aware splint is ready for inspection.
--- NOTE | 2021-10-26 18:24 | NUR ---
RATNA Spivey checked and approved splint for proper placement, CMS intact prior and after splint placement.
[2021-10-26 18:45] VITALS: BP 138/96
--- NOTE | 2021-10-26 18:49 | NUR ---
Patient discharged with v/s stable. Written and verbal after care instructions given and explained. Patient alert, oriented and verbalized understanding of instructions. Ambulatory with steady gait. All questions addressed prior to discharge. ID band removed. Patient advised to follow up with PMD. Rx of Hydrocodone/Acetaminophen given. Patient educated on indication of medication including possible reaction and side effects. Opportunity to ask questions provided and answered.
== END 2021-10-26 18:45 | disposition home or self-care (01) ==
LOC: MED 16:34
DX: S52.592A Other fractures of lower end of left radius, initial encounter for closed fracture (principal); E11.9 Type 2 diabetes mellitus without complications; I10 Essential (primary) hypertension; Z86.73 Personal history of transient ischemic attack (TIA), and cerebral infarction without residual deficits; Z79.899 Other long term (current) drug therapy; W19.XXXA Unspecified fall, initial encounter; Y93.89 Activity, other specified; Y92.89 Other specified places as the place of occurrence of the external cause; Y99.8 Other external cause status
CPT/HCPCS: 29125; 73090; 73110; 99284; Q0092

== ENCOUNTER 2021-12-05 17:20 | Emergency (ER) | payer OTHER ==
[~2021-12-05] VITALS: Ht 167.6 cm; Wt 131.5 kg
--- NOTE | 2021-12-05 17:27 | NUR ---
GAGANDEEP ALS TO ER BED 12
[2021-12-05 17:35] VITALS: BP 126/69
[2021-12-05] MEDS ORDERED: NACL 0.9% 1,000 ML IV ONE (17:55)
--- NOTE | 2021-12-05 18:14 | NUR ---
55 Y/O FEMALE BIBA C/O SEIZURE AND FALL. DOESNT REMEMBER IF THEY HIT THEIR HEAD. NO HEAD WOUND NOTED, SEIZURE PRECAUTIONS DONE, BED IN LOWEST POSITION. RESPIRATIONS EVEN AND UNLABORED, A/OX4. PMH; DM, HTN, HYPERLIPIDEMIA, EPILEPSY, CVA, LEFT ARM PARALYSIS NKA
--- NOTE | 2021-12-05 18:25 | NUR ---
RAD AT BEDSIDE
--- NOTE | 2021-12-05 18:39 | NUR ---
URINE WALKED TO LAB, HANDED TO CRISTINE
[2021-12-05 18:50] LABS: APPEARANCE,URINE CLEAR (CLEAR); BILIRUBIN,URINE NEGATIVE (NEGATIVE); BLOOD, URINE NEGATIVE (NEGATIVE); LEUKOCYTE ESTERASE ,URINE NEGATIVE (NEGATIVE); NITRITE, URINE NEGATIVE (NEGATIVE); UGLUCOSE NEGATIVE (NEGATIVE)
[2021-12-05 18:52] LABS: COLOR,URINE STRAW (YELLOW)
--- NOTE | 2021-12-05 19:28 | NUR ---
Pt report given to GAYLA FORD. Transfer of care at this time.
--- NOTE | 2021-12-05 19:45 | NUR ---
PATIENT ASSISTED WITH BED BRADFORD. TOLERATED WELL. PATIENT DOES COMPLAIN OF ANKLE PAIN FROM PREVIOUS FX ASKING FOR PAIN MEDICATION. PT AAOX4. BOLUS STILL INFUSING IN THE LEFT HAND. NO SWELLING, OR REDNESS NOTED.
[2021-12-05] MEDS ORDERED: ACETAMINOPHEN EXTRA STRENGTH 500 MG TAB PO ONE (19:55)
--- NOTE | 2021-12-05 19:58 | NUR ---
PT pulled out IV. Catheter intact and site benign. Applied folded 4x4 gauze and tape to stop bleeding.
[2021-12-05 20:34] LABS: BASOPHILS # (AUTO) 0.2 K/uL (0.00-0.22); EOSINOPHILS # (AUTO) 0.2 K/uL (0-0.4); EOSINOPHILS % (AUTO) 2.3 % (0.0-4.0); HEMATOCRIT 41.4 % (36-48); HEMOGLOBIN 13.4 g/dL (12.0-16.0); LYMPHOCYTES # (AUTO) 2.2 K/uL (2.5-16.5); LYMPHOCYTES % (AUTO) 20.2 % (20.5-51.1); MEAN CORPUSCULAR HEMOGLOBIN 29 pg (27-31); MEAN CORPUSCULAR HGB CONC 33 g/dL (33-37); MEAN CORPUSCULAR VOLUME 87.7 fL (80-94); MONOCYTES # (AUTO) 0.5 K/uL (0.8-1.0); MONOCYTES % (AUTO) 4.7 % (1.7-9.3); NEUTROPHILS # (AUTO) 7.6 K/uL (1.8-7.7); NEUTROPHILS % (AUTO) 70.8 % (42.2-75.2); PLATELET COUNT (AUTO) 288 K/uL (140-450); RED BLOOD CELL COUNT(AUTO) 4.72 MIL/uL (4.20-5.40); RED CELL DISTRIBUTION WIDTH 13.7 % (11.6-13.7); WHITE BLOOD COUNT (AUTO) 10.8 K/uL (4.8-10.8)
[2021-12-05 20:50] LABS: ANION GAP 13.7 (8-16); CARBON DIOXIDE 23.3 mmol/L (21-32); CREATININE 0.7 mg/dL (0.6-1.3)
--- NOTE | 2021-12-05 21:43 | NUR ---
placed an air and gel ankle stirrup to the right ankle. patient tolerated well.
[2021-12-05 21:47] VITALS: BP 122/87
--- NOTE | 2021-12-05 21:47 | NUR ---
Patient discharged with v/s stable. Written and verbal after care instructions given and explained. Patient verbalized understanding. Wheel Chair Assisted with to car. ID band removed. All questions addressed prior to discharge. Advised to follow up with PMD.
== END 2021-12-05 21:47 | disposition home or self-care (01) ==
LOC: MED 17:20
DX: R56.9 Unspecified convulsions (principal); M25.571 Pain in right ankle and joints of right foot; R07.81 Pleurodynia; E11.9 Type 2 diabetes mellitus without complications; I10 Essential (primary) hypertension; Z86.73 Personal history of transient ischemic attack (TIA), and cerebral infarction without residual deficits; Z98.890 Other specified postprocedural states; Z79.899 Other long term (current) drug therapy
CPT/HCPCS: 29125; 36415; 71045; 73610; 80048; 81003; 84484; 85025; 93005; 96360; 96361; 99285; Q0092; J7030

== ENCOUNTER 2022-04-05 13:29 | Emergency (ER) | payer OTHER ==
[~2022-04-05] VITALS: Ht 165.1 cm; Wt 97.1 kg
--- NOTE | 2022-04-05 13:59 | NUR ---
FIRST ATTEMPT TO CALL PT BACK TO TRIAGE, NO ANSWER.
--- NOTE | 2022-04-05 13:59 | NUR ---
PATIENT LEFT WITHOUT BEING SEEN BY DR. SANCHEZ. NO FURTHER CARE PROVIDED FOR PATIENT.
--- NOTE | 2022-04-05 14:13 | NUR ---
SECOND ATTEMPT TO CALL PT BACK TO TRIAGE, NO ANSWER.
--- NOTE | 2022-04-05 14:30 | NUR ---
THIRD ATTEMPT TO CALL PT BACK TO TRIAGE, NO ANSWER.
--- NOTE | 2022-04-05 15:50 | NUR ---
PT FELL ASLEEP IN LOBBY AND WAS NOT ANSWERING WHEN BEING CALLED.
[2022-04-05 16:01] VITALS: BP 142/93
--- NOTE | 2022-04-05 18:21 | NUR ---
PT W/C ASSISTED TO ER BED 3 BY PERSONAL ELECTRIC WHEELCHAIR
--- NOTE | 2022-04-05 18:24 | NUR ---
56 Y/O FEMALE C/O LEFT ANKLE PAIN AFTER FALLING 2 DAYS AGO. 10/10 PAIN THAT IS SHARP AND HAS TROUBLE STANDING. PT ATTEMPTED TO STAND AND WAS NOT ABLE TO HANDLE OWN WEIGHT. NOTED SWELLING ON LOWER EXTREMITIES. LEFT ARM IS PARALYZED FROM PREVIOUS STROKE. PT DOES NOT KNOW IF SHE HIT HER HEAD OR NOT. PT SAYS SHE GOT UP TOO FAST AND TRIPPED OVER HER OWN FEET. NKA HX: DM, STROKE, HTN, HDL
--- NOTE | 2022-04-05 18:30 | NUR ---
DR BOLAÑOS AT BEDSIDE FOR EVAL
[2022-04-05] MEDS ORDERED: HYDROcodone/APAP 7.5/325 MG 1 TAB PO ONE (18:35)
--- NOTE | 2022-04-05 18:48 | NUR ---
XRAY AT BEDSIDE
--- NOTE | 2022-04-05 19:52 | NUR ---
Pt report given to GLENIS PAUL. Transfer of care at this time.
--- NOTE | 2022-04-05 20:08 | NUR ---
PT TO CT
--- NOTE | 2022-04-05 20:26 | NUR ---
PT RETURNED FROM CT
--- NOTE | 2022-04-05 21:35 | NUR ---
PT UNABLE TO URINATE
[2022-04-05 23:15] VITALS: BP 144/95
--- NOTE | 2022-04-05 23:15 | NUR ---
Patient discharged with v/s stable. Written and verbal after care instructions given. Patient verbalized understanding. Used wheelchair to leave ER. All questions addressed prior to discharge. Advised to follow up with PMD.
== END 2022-04-05 23:15 | disposition home or self-care (01) ==
LOC: MED 13:29
DX: M25.572 Pain in left ankle and joints of left foot (principal); M25.562 Pain in left knee; M54.9 Dorsalgia, unspecified; E11.9 Type 2 diabetes mellitus without complications; I10 Essential (primary) hypertension; Z79.899 Other long term (current) drug therapy; Z86.73 Personal history of transient ischemic attack (TIA), and cerebral infarction without residual deficits; W19.XXXA Unspecified fall, initial encounter; Y93.89 Activity, other specified; Y92.89 Other specified places as the place of occurrence of the external cause; Y99.8 Other external cause status
CPT/HCPCS: 70450; 72170; 73610; 99284; Q0092

== ENCOUNTER 2022-05-01 18:08 | Emergency (ER) | payer OTHER ==
[~2022-05-01] VITALS: Ht 162.6 cm; Wt 95.3 kg
[2022-05-01 18:10] VITALS: BP 140/90
--- NOTE | 2022-05-01 18:11 | NUR ---
BIBA to bed 12
--- NOTE | 2022-05-01 18:12 | NUR ---
DR CUETO EVALUATING PT AT THIS TIME
--- NOTE | 2022-05-01 18:20 | NUR ---
56 y/o F BIBA from [facility] c/o R ear pain; sent for further evaluation to r/o stroke d/t hx. Patient A&Ox4, states R ear pain 10/10 x 2 days, sharp/constant radiating to front of head. Pt states R eye pain as well. Denies nausea, vomiting, blurry vision, fever, chills. GCS 15. Pt placed onto director of cardiac cath lab. Bed locked in lowest position, side rails x 1. Dr. Bazan made aware of pt presentation. Sz precaution in place. PMH: CVA- L SIDED DEFICIT (LUE), BRAIN ANEURYSM. HTN, seizures MEDS: PHENYTOIN NKDA
--- NOTE | 2022-05-01 18:40 | NUR ---
Dr. Bazan is evaluating pt at bedside
--- NOTE | 2022-05-01 18:58 | NUR ---
Blood sample walked to lab, handed to CPT Aria
--- NOTE | 2022-05-01 19:05 | NUR ---
RAD at bedside
[2022-05-01] MEDS: HYDROcodone/APAP 5/325 MG 1 TAB TAB PO ONE (19:07)
[2022-05-01 19:09] LABS: BASOPHILS # (AUTO) 0.1 K/uL (0.00-0.22); BASOPHILS % (AUTO) 0.5 % (0.0-2.0); EOSINOPHILS # (AUTO) 0.3 K/uL (0-0.4); EOSINOPHILS % (AUTO) 2.9 % (0.0-4.0); HEMOGLOBIN 12.9 g/dL (12.0-16.0); LYMPHOCYTES # (AUTO) 3.1 K/uL (2.5-16.5); LYMPHOCYTES % (AUTO) 27.8 % (20.5-51.1); MEAN CORPUSCULAR HEMOGLOBIN 28 pg (27-31); MEAN CORPUSCULAR HGB CONC 33 g/dL (33-37); MEAN CORPUSCULAR VOLUME 83.9 fL (80-94); MONOCYTES # (AUTO) 0.7 K/uL (0.8-1.0); MONOCYTES % (AUTO) 6.3 % (1.7-9.3); NEUTROPHILS # (AUTO) 7.1 K/uL (1.8-7.7); NEUTROPHILS % (AUTO) 62.5 % (42.2-75.2); PLATELET COUNT (AUTO) 330 K/uL (140-450); RED BLOOD CELL COUNT(AUTO) 4.64 MIL/uL (4.20-5.40); RED CELL DISTRIBUTION WIDTH 13.7 % (11.6-13.7); WHITE BLOOD COUNT (AUTO) 11.3 K/uL (4.8-10.8)
--- NOTE | 2022-05-01 19:20 | NUR ---
Report and transfer of care endorsed to GAYLA Perez.
--- NOTE | 2022-05-01 19:20 | NUR ---
ASSUME CARE OF PT BY MARLENY SHUKLA, REPORT GIVEN BY SUSAN SHUKLA, PT ON BAG PRINTER, PT BIBA FOR RIGHT EAR PAIN, PT HAS HX- CVA WITH LEFT SIDED WEAKNESS, BRAIN ANYRUISM. PT WENT TO URGENT CARE AND WAS SENT TO ER DUE TO POSSIBLE STROKE BECAUSE MEDICAL STAFF STATED RIGHT SIDED WEAKNESS. PT DENIES ANY DISCOMFORT, PT WAS GIVEN NORCO FROM PRIOR SHIFT.
[2022-05-01 19:30] LABS: ALBUMIN 3.1 g/dL (3.4-5.0); ANION GAP 14.6 (8-16); CARBON DIOXIDE 26.9 mmol/L (21-32); CREATININE 0.9 mg/dL (0.6-1.3); POTASSIUM 3.5 mmol/L (3.5-5.1); TOTAL BILIRUBIN 0.3 mg/dL (0.0-1.0)
--- NOTE | 2022-05-01 19:48 | NUR ---
PT TAKEN TO CT
--- NOTE | 2022-05-01 21:00 | NUR ---
PT RESTING IN BED, DENIES ANY DISCOMFORT AT PRESENT TIME. WAITING FOR DISPO
[2022-05-01] MEDS ORDERED: AMOX-999 PO (21:29)
--- NOTE | 2022-05-01 22:42 | NUR ---
Patient discharged with v/s stable. Written and verbal after care instructions given and explained. Patient verbalized understanding. Ambulatory with gait. All questions addressed prior to discharge. Advised to follow up with PMD.
[2022-05-02 05:47] VITALS: BP 134/68
== END 2022-05-01 22:42 | disposition home or self-care (01) ==
LOC: MED 18:08
DX: H66.91 Otitis media, unspecified, right ear (principal); R53.1 Weakness; E11.9 Type 2 diabetes mellitus without complications; I10 Essential (primary) hypertension; Z86.69 Personal history of other diseases of the nervous system and sense organs; Z86.73 Personal history of transient ischemic attack (TIA), and cerebral infarction without residual deficits; Z98.890 Other specified postprocedural states; Z79.899 Other long term (current) drug therapy; Z79.2 Long term (current) use of antibiotics; Z79.891 Long term (current) use of opiate analgesic; W01.198A Fall on same level from slipping, tripping and stumbling with subsequent striking against other object, initial encounter; Y92.89 Other specified places as the place of occurrence of the external cause; Y93.89 Activity, other specified; Y99.8 Other external cause status
CPT/HCPCS: 36415; 70450; 70487; 80053; 85025; 99285; Q9967

== ENCOUNTER 2022-06-19 21:38 | Emergency (ER) | payer OTHER ==
[~2022-06-19] VITALS: Ht 167.6 cm; Wt 95.3 kg
[~2022-06-19 21:38] MED LIST changes: +AMOX-999 PO
--- NOTE | 2022-06-19 21:39 | NUR ---
PT BROUGHT TO BED 7 VIA REGAN SEGURA
[2022-06-19 21:44] VITALS: BP 138/83
--- NOTE | 2022-06-19 22:29 | NUR ---
pt attempting to get out of bed stating "this is bullshit. i not going to stay in this uncomfortable bed. i just want to go home and eat. i am not in any pain anymore." discussed with patient the option of staying and being seen my the provider and pt declined.
--- NOTE | 2022-06-19 22:47 | NUR ---
Pt request food before going home. Gave pt a ham [facility] with crackers. Pt has no c/o.
--- NOTE | 2022-06-19 23:00 | NUR ---
Pt walked out the ER and refused to be seen by MD. Pt refused any care to be done to her. Pt ambulatory with steady gait. A&Ox4. VSS. Skin intact. Pt stated "I feel better and not in any more pain so I want to go home get in bed and watch tv." And pt stormed out the ER. Pt has no IV in place. forestry engineer notified.
--- NOTE | 2022-06-19 23:06 | NUR ---
PATIENT LEFT WITHOUT BEING SEEN BY DR. Estrada. NO FURTHER CARE PROVIDED FOR PATIENT.
== END 2022-06-19 23:06 | disposition left against medical advice (07) ==
LOC: MED 21:38
DX: R51.9 Headache, unspecified (principal); E11.9 Type 2 diabetes mellitus without complications; I10 Essential (primary) hypertension; Z53.21 Procedure and treatment not carried out due to patient leaving prior to being seen by health care provider; Z86.73 Personal history of transient ischemic attack (TIA), and cerebral infarction without residual deficits; Z79.899 Other long term (current) drug therapy; W19.XXXA Unspecified fall, initial encounter; Y93.89 Activity, other specified; Y92.89 Other specified places as the place of occurrence of the external cause; Y99.8 Other external cause status

== ENCOUNTER 2022-10-09 12:03 | Emergency (ER) | payer OTHER ==
[~2022-10-09] VITALS: Ht 167.6 cm; Wt 95.3 kg
[2022-10-09 12:03] VITALS: BP 125/92
[~2022-10-09 12:03] MED LIST changes: -ACET-8386 PO; +ACET-8905 PO; -OLME20TA11 PO; +OLME20TA75 PO
--- NOTE | 2022-10-09 12:15 | NUR ---
BIBA BED 8
[2022-10-09] MEDS ORDERED: levETIRAcetam 1,000 MG in NACL 0.9% 100 ML IV ONE (12:20)
[2022-10-09] MEDS ORDERED: LORazepam 2 MG/ML VIAL IVP ONE (12:20)
--- NOTE | 2022-10-09 12:20 | NUR ---
SIN AT BEDSIDE FOR EVALUATION
--- NOTE | 2022-10-09 12:26 | NUR ---
PT HAD SEIZURE LASTING 12-[address] PALACIOS WAS BEDSIDE. PER DR PALACIOS PTS EYES ROLLED BACK AND SHE FAINTED. 1MG ATIVAN GIVEN IV PER DR PALACIOS
[2022-10-09] MEDS ORDERED: PHENYTOIN 100 MG/2 ML VIAL IVP ONE (12:30)
--- NOTE | 2022-10-09 12:30 | NUR ---
pt AAOx3 w/ slight delayed clear speech. on monitoring manager. bed at lowest position, bed rails upx2.
--- NOTE | 2022-10-09 12:45 | NUR ---
56YO FEMALE PT BIBA HOME C/O GENERALIZED WEAKNESS XTODAY. REPORTS FEELING "SICK" AND "ABOUT TO HAVE A SEIZURE" AFTER SITTING IN SUN FOR XHOURS. STATES/DESCRIBES SEIZURES " FEEL LIKE I FAINT" AND BEING OUT OF RX DILATIN FOR A WEEK "NO ONE HAS BEEN ABLE TO PICK IT UP". PT AAOX4, L SIDED DEFICIT. ON CLIENT CONSULTANT. BED AT LOWEST POSITION, BED RAILS UPX2. SEIZURE PADS IN PLACE. HX: CVA- L SIDED DEFICIT, DM, SZ, BRAIN ANAERYSM NKA
[2022-10-09 13:01] LABS: BASOPHILS # (AUTO) 0.1 K/uL (0.00-0.22); BASOPHILS % (AUTO) 0.7 % (0.0-2.0); EOSINOPHILS # (AUTO) 0.3 K/uL (0-0.4); EOSINOPHILS % (AUTO) 3.9 % (0.0-4.0); HEMATOCRIT 40.3 % (36-48); HEMOGLOBIN 13.3 g/dL (12.0-16.0); LYMPHOCYTES # (AUTO) 2.8 K/uL (2.5-16.5); LYMPHOCYTES % (AUTO) 31.8 % (20.5-51.1); MEAN CORPUSCULAR HEMOGLOBIN 28 pg (27-31); MEAN CORPUSCULAR HGB CONC 33 g/dL (33-37); MEAN CORPUSCULAR VOLUME 84.9 fL (80-94); MONOCYTES # (AUTO) 0.5 K/uL (0.8-1.0); MONOCYTES % (AUTO) 5.7 % (1.7-9.3); NEUTROPHILS # (AUTO) 5.2 K/uL (1.8-7.7); NEUTROPHILS % (AUTO) 57.9 % (42.2-75.2); PLATELET COUNT (AUTO) 376 K/uL (140-450); RED BLOOD CELL COUNT(AUTO) 4.75 MIL/uL (4.20-5.40); RED CELL DISTRIBUTION WIDTH 13.4 % (11.6-13.7)
[2022-10-09 13:19] LABS: ALBUMIN 3.5 g/dL (3.4-5.0); ANION GAP 12.4 (8-16); CARBON DIOXIDE 29.1 mmol/L (21-32); CREATININE 0.8 mg/dL (0.6-1.3); MAGNESIUM 2.1 mg/dL (1.8-2.4); POTASSIUM 3.5 mmol/L (3.5-5.1); TOTAL BILIRUBIN 0.2 mg/dL (0.0-1.0)
[2022-10-09 13:56] LABS: PHENYTOIN (DILANTIN) 1.1 ug/ml (10.0-20.0)
[2022-10-09] MEDS ORDERED: PHEN100C3 PO (14:27)
--- NOTE | 2022-10-09 15:31 | NUR ---
CALLED DAUGHTER KIN X2 NO ANSWER. VOICEMAIL LEFT.
[2022-10-09 16:35] VITALS: BP 129/80
--- NOTE | 2022-10-09 16:38 | NUR ---
PT AAOX4, "FEEL BETTER". DENIES PAIN AT THIS TIME.
--- NOTE | 2022-10-09 16:40 | NUR ---
IV removed, catheter intact and site benign. Applied folded 4x4 gauze and tape to stop bleeding.
--- NOTE | 2022-10-09 16:41 | NUR ---
Note meganone in EDM - 10/09/22 at 1652 by PHSEP Patient discharged with v/s stable. Written and verbal after care instructions FOR SEIZURE given and explained. Patient alert, oriented and verbalized understanding of instructions. Ambulatory with steady gait. All questions addressed prior to discharge. ID band removed. Patient advised to follow up with PMD. Rx of DILANTIN given. Opportunity to ask questions provided and answered.
--- NOTE | 2022-10-09 16:41 | NUR ---
Patient discharged with v/s stable. Written and verbal after care instructions FOR SEIZURE given and explained. Patient alert, oriented and verbalized understanding of instructions. WHEELCHAIR ASSISTED . All questions addressed prior to discharge. ID band removed. Patient advised to follow up with PMD. Rx of DILANTIN given. Opportunity to ask questions provided and answered.
--- NOTE | 2022-10-09 16:42 | NUR ---
The patient's care was reviewed and supervised by Emilee Gorman RN.
== END 2022-10-09 16:41 | disposition home or self-care (01) ==
LOC: MED 12:03
DX: G40.89 Other seizures (principal); E11.65 Type 2 diabetes mellitus with hyperglycemia; I25.10 Atherosclerotic heart disease of native coronary artery without angina pectoris; I10 Essential (primary) hypertension; Z76.0 Encounter for issue of repeat prescription; Z86.73 Personal history of transient ischemic attack (TIA), and cerebral infarction without residual deficits; Z79.4 Long term (current) use of insulin; Z79.899 Other long term (current) drug therapy
CPT/HCPCS: 36415; 80053; 80185; 83735; 84100; 85025; 96365; 96375; 99285; J1165; J1953; J2060

== ENCOUNTER 2022-11-18 10:11 | Emergency (ER) | payer OTHER ==
[~2022-11-18] VITALS: Ht 162.6 cm; Wt 96.2 kg
[~2022-11-18 10:11] MED LIST changes: +PHEN100C3 PO
[2022-11-18 10:35] VITALS: BP 157/110
--- NOTE | 2022-11-18 10:37 | NUR ---
BIBA BLS TO ER BED 11
[2022-11-18] MEDS ORDERED: MORPHINE SULFATE 4 MG/ML SYR IM ONE (11:05)
[2022-11-18] MEDS ORDERED: ACET-8905 PO (12:51)
[2022-11-18] MEDS ORDERED: DICL100G5 TP (12:51)
--- NOTE | 2022-11-18 15:30 | NUR ---
Patient discharged with v/s stable. Written and verbal after care instructions given and explained. Patient verbalized understanding. Ambulatory with steady gait. All questions addressed prior to discharge. Advised to follow up with PMD.
[2022-11-18 15:40] VITALS: BP 157/110
== END 2022-11-18 15:40 | disposition home or self-care (01) ==
LOC: MED 10:11
DX: S93.492A Sprain of other ligament of left ankle, initial encounter (principal); S16.1XXA Strain of muscle, fascia and tendon at neck level, initial encounter; S40.011A Contusion of right shoulder, initial encounter; I10 Essential (primary) hypertension; E11.9 Type 2 diabetes mellitus without complications; I25.10 Atherosclerotic heart disease of native coronary artery without angina pectoris; Z86.73 Personal history of transient ischemic attack (TIA), and cerebral infarction without residual deficits; Z79.4 Long term (current) use of insulin; Z79.899 Other long term (current) drug therapy; W18.30XA Fall on same level, unspecified, initial encounter; Y93.89 Activity, other specified; Y92.89 Other specified places as the place of occurrence of the external cause; Y99.8 Other external cause status
CPT/HCPCS: 72040; 73030; 73610; 96372; 99284; J2270

== ENCOUNTER 2022-12-24 10:58 | Emergency (ER) | payer OTHER ==
[~2022-12-24] VITALS: Ht 162.6 cm; Wt 72.6 kg
[~2022-12-24 10:58] MED LIST changes: +DICL100G5 TP
--- NOTE | 2022-12-24 11:19 | NUR ---
PT TO BED 5 BIBA ALS
[2022-12-24 13:06] LABS: BASOPHILS # (AUTO) 0.1 K/uL (0.00-0.22); BASOPHILS % (AUTO) 0.6 % (0.0-2.0); EOSINOPHILS # (AUTO) 0.4 K/uL (0-0.4); EOSINOPHILS % (AUTO) 4.7 % (0.0-4.0); HEMATOCRIT 39.7 % (36-48); HEMOGLOBIN 13.3 g/dL (12.0-16.0); LYMPHOCYTES # (AUTO) 2.2 K/uL (2.5-16.5); LYMPHOCYTES % (AUTO) 26.3 % (20.5-51.1); MEAN CORPUSCULAR HEMOGLOBIN 28 pg (27-31); MEAN CORPUSCULAR HGB CONC 34 g/dL (33-37); MEAN CORPUSCULAR VOLUME 84.6 fL (80-94); MONOCYTES # (AUTO) 0.5 K/uL (0.8-1.0); MONOCYTES % (AUTO) 6.5 % (1.7-9.3); NEUTROPHILS # (AUTO) 5.2 K/uL (1.8-7.7); NEUTROPHILS % (AUTO) 61.9 % (42.2-75.2); PLATELET COUNT (AUTO) 292 K/uL (140-450); RED BLOOD CELL COUNT(AUTO) 4.69 MIL/uL (4.20-5.40); RED CELL DISTRIBUTION WIDTH 13.1 % (11.6-13.7); WHITE BLOOD COUNT (AUTO) 8.4 K/uL (4.8-10.8)
[2022-12-24 13:40] LABS: ANION GAP 12.3 (8-16); ASPARTATE AMINOTRANSFERASE 34 U/L (15-37); CARBON DIOXIDE 28.2 mmol/L (21-32); CHLORIDE 105 mmol/L (98-107); CREATININE 0.8 mg/dL (0.6-1.3); GFR ARICAN-AMERICAN 94 mL/min (>90); GLUCOSE 156 mg/dL (74-106); POTASSIUM 3.5 mmol/L (3.5-5.1); SODIUM SERUM 142 mmol/L (136-145); UREA NITROGEN, BLOOD 13 mg/dL (7-18)
[2022-12-24 14:00] LABS: SALICYLATE < 2.8 mg/dL (2.8-20.0)
[2022-12-24 14:09] LABS: TOTAL BILIRUBIN 0.1 mg/dL (0.0-1.0)
[2022-12-24 15:34] LABS: ACETAMINOPHEN < 0.5 ug/ml (10-30)
[2022-12-24] MEDS ORDERED: LORazepam 1 MG TAB PO ONE (17:50)
--- NOTE | 2022-12-24 18:00 | NUR ---
eating dinner in bed. no complaints all need addressed.
--- NOTE | 2022-12-24 19:54 | NUR ---
57YR OLD FEMALE BIB IN FOR SI . PT HAS BEEN PLACED ON A 5150. TELEPSYCH DONE PENDING PLACEMENT . PT HAD A ARGUEMENT WITH FAMILY MEMEBER , SI STATEMENTS WERE SAID HX OF BIPLOAR AND MENTAL HEALTH ISSUES HX OF TBI. PT IS A&OX4. SZ PADS IN PLACE X2 ON BED RAILS. Q15 SAFTEY CHECKS . ALL ITEMS FROM ROOM REMOVED FOR PT SAFTEY. BED AT LOWEST POSITION SIDE RAILS UP X2 .
--- NOTE | 2022-12-24 19:54 | NUR ---
URINE STILL PENDING FOR COLLECTION
--- NOTE | 2022-12-24 23:10 | NUR ---
PT AWAKE UP TO BATHROOM WITH STEADY GAIT. FOOD PROVIDED TO PT . DENIES PAIN
--- NOTE | 2022-12-25 01:56 | NUR ---
PT SLEEPING WITH BED RAILS UP X2. PT REFUSING TO GIVE URINE SAMPLE.
--- NOTE | 2022-12-25 04:56 | NUR ---
PT AWAKE UP TO BATHROOM WITH STEADY GAIT. PT UPSET ABOUT NOT HAVING TOILETRIES TO CLEAN UP. PT WANTING TO SPEAK WITH HER DAUGHTER . UPSET ABOUT NOT HAVING HER PHONE TO SPEAK WITH DAUGHTER. EXPLAINED TO PT ABOUT THE 5150 HOLD , EXPLAINED PERSONAL BELONGINGS ARE SAFE, PT GIVEN RIGHT TO A PHONE CALL TO DAUGHTER. FOOD PROVIDED TO PT. PENDING ACCEPTANCE TO TRANSFER
--- NOTE | 2022-12-25 05:03 | NUR ---
URINE COLLECTED AND SENT TO LAB
[2022-12-25 05:04] LABS: APPEARANCE,URINE CLEAR (CLEAR); BILIRUBIN,URINE NEGATIVE (NEGATIVE); BLOOD, URINE NEGATIVE (NEGATIVE); COLOR,URINE YELLOW (YELLOW); LEUKOCYTE ESTERASE ,URINE NEGATIVE (NEGATIVE); NITRITE, URINE NEGATIVE (NEGATIVE); PH,URINE 7.5 (5.0-9.0); UGLUCOSE NEGATIVE (NEGATIVE)
[2022-12-25] MEDS ORDERED: ACETAMINOPHEN EXTRA STRENGTH 500 MG TAB PO ONE (05:35)
--- NOTE | 2022-12-25 06:38 | NUR ---
SPOKE WITH KIN PT DAUGHTER ON PHONE. UPDATED DAUGHTER OF PT CONDITION. CONCERNED ON HER MOTHERS LIVING CONDITION AND POSSIBLE USE OF METH. DAUGHTER ALSO EXPRESSED THE NEED FOR CLIENT SUCCESS MANAGER
--- NOTE | 2022-12-25 07:20 | NUR ---
Report recieved from BEVERLY Ribera for transfer of care.
--- NOTE | 2022-12-25 08:14 | NUR ---
patient attempted to leave. tried to reassure patient back to bed but refused to stay. attempted to grab patient but became aggresive and scratched. upon trying to hold patient, patient fell to the ground. no head injury noted, no loc noted. patient continued to become verbally and physically aggressive. assistance called and patient was assisted up, offered wheelchair for escort back to bed, patient refused and wanted to walk back to bed. patient continued to use profanity against staff but assisted back to bed. ermd at bedside
[2022-12-25] MEDS ORDERED: LORazepam 2 MG/ML VIAL IM ONE (08:20)
[2022-12-25] MEDS ORDERED: HALOPERIDOL IM 5 MG/ML VIAL IM ONE (08:20)
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
--- NOTE | 2022-12-25 08:48 | NUR ---
Dr. Kaminski, psychiatrist evaluating patient via Telepsych.
[2022-12-25 09:51] LABS: BENZODIAZEPINE, URINE POSITIVE ng/mL (NEG <=200); CANNABINOID, URINE POSITIVE ng/mL (NEG <=50)
[2022-12-25 09:52] LABS: BARBITURATE, URINE POSITIVE ng/ml (NEG <=200); COCAINE, URINE NEGATIVE ng/mL (NEG <=300); OPIATE, URINE NEGATIVE ng/mL (NEG <=2000); PHENCYCLIDINE SCREEN,URINE NEGATIVE ng/mL (NEG <=25)
--- NOTE | 2022-12-25 10:27 | NUR ---
Spoke to Chela [facility], updated her on patients condition.
--- NOTE | 2022-12-25 11:01 | NUR ---
Patient is laying in bed, respirations even and unlabored. All needs met by staff.
[2022-12-25] MEDS ORDERED: BENA-16 PO (11:20)
[2022-12-25] MEDS ORDERED: PHEN100C3 PO (11:20)
--- NOTE | 2022-12-25 11:51 | NUR ---
PTS DAUGHTER KIN AT BEDSIDE AND REQUESTING LITHODUPLICATOR OPERATOR CONSULT. PER DAUGHTER, SHE IS CURRENTLY IN THE PROCESS OF TRYING TO GAIN CONSERVATORSHIP OVER HER MOTHER AND IS TRYING TO GET HER INTO A [facility] FACILITY. PATRICIA, KITCHEN AND BATH DESIGNER NOTIFIED.
--- NOTE | 2022-12-25 12:22 | NUR ---
Patient was offered lunch tray. Patient is sleeping on bed, left tray at bedside.
[2022-12-25] MEDS: PHENYTOIN 100 MG CAPER PO SCH ×2 (13:20→17:23)
--- NOTE | 2022-12-25 14:03 | NUR ---
FIELDED MESSAGE FROM CM WHO REPORTS ED CALLED REQUESTING SW SPEAK TO FAMILY TO DISCUSS HOLD AND ALTERNATIVE PLACEMENT. SW OUTREACHED TO PTS DAUGHTER KIN [place], TO DISCUSS HOLD. REPORTED TO KIN A REFERRAL PACKET HAS BEEN SENT TO [facility] AND NURSES ARE PROVIDING PSYCHIATRIC UNITS WITH UPDATED CLINICALS THEY CALL. KIN AWARE OF PTS CURRENT HOLD. SW DISCUSSED WITH PT SEVERAL ORE DRESSING ENGINEER ALTERNATIVE OPTIONS (SNF VS ASSISTED LIVING, REHAB, BOARD AND CARE). DISCUSSED BARRIERS WITH HAVING PT PLACED. SW ENCOURAGED KIN TO FILE FOR CONSERVATORSHIP OVER PT. KIN REPORTS WORKING WITH [facility] CM AND PCP IN OBTAINING TEMP GUARDIANSHIP. KIN REPORTS BEING AWARE OF RESOURCES AND IS CURRENTLY WORKING ON. KIN APPRECIATIVE OF INFORMATION PROVIDED.
--- NOTE | 2022-12-25 14:58 | NUR ---
Spoke to Kelsey at Dr. Prince office, PCP, and updated her of patients condition. Requesting med list, Kelsey said she will fax it. Requesting a call back if patient is placed to [phone].
--- NOTE | 2022-12-25 15:56 | NUR ---
Patient ambulated to restroom.
--- NOTE | 2022-12-25 16:02 | NUR ---
Patient is sitting up eating lunch.
--- NOTE | 2022-12-25 18:01 | NUR ---
Patient is laying in bed, respirations even and unlabored. All needs met by staff. Frequent visual checks being made.
--- NOTE | 2022-12-25 19:17 | NUR ---
Report given to GAYLA Cardona for transfer of care
--- NOTE | 2022-12-25 19:18 | NUR ---
Reprt fr Tanya mccormick all questions were answered
--- NOTE | 2022-12-25 19:36 | NUR ---
ASSUMED CARE , PT PLEASANT COOPERATIVE , ASSISTED TO THE BR JAIRO WELL
--- NOTE | 2022-12-25 20:30 | NUR ---
COOPERATIVE AND DIRECTABLE, CONSTANT OBSERVER AT ALL TIMES FOR PT SAFETY
[2022-12-25] MEDS: OLANZapine 5 MG ODT PO SCH (21:00)
[2022-12-25] MEDS ORDERED: PHENYTOIN 100 MG CAPER PO ONE (21:00)
--- NOTE | 2022-12-25 21:41 | NUR ---
SLEEPING , NAD, CONSTANT OBSERVER AT ALL TIMES FOR PT SAFETY
--- NOTE | 2022-12-26 02:30 | NUR ---
SLEEPING, CONSTANT OBSERVER AT ALL TIMES
--- NOTE | 2022-12-26 04:30 | NUR ---
AWAKE, PLEASANT COOPERATIVE , DENIES SI
--- NOTE | 2022-12-26 06:49 | NUR ---
PT SLEPT WELL, DENIES SI, NO AUDITORY HALLUCINATION, I SPOKE WITH HINA VILLANUEVA, WANTED AN UPDTE OF PT CONTION, I WAS TOLD , A BED MIGHT OPEN UP THIS AM AFTER DISCHARGES
--- NOTE | 2022-12-26 07:20 | NUR ---
Report recieved from GAYLA Cardona for transfer of care.
--- NOTE | 2022-12-26 07:30 | NUR ---
PT BIB AMBULANCE ON 12/24/22 FOR SUICIDAL IDEATION, HEARING VOICES. PT CURRENTLY IN ROOM SLEEPING. SAFETY MAINTAINED.
[2022-12-26] MEDS ORDERED: BENAZEPRIL 10 MG TAB PO SCH (09:00)
--- NOTE | 2022-12-26 09:14 | NUR ---
Patient ambulated to the restroom.
[2022-12-26] MEDS: OLANZapine 5 MG ODT PO SCH (09:49)
[2022-12-26] MEDS: PHENYTOIN 100 MG CAPER PO SCH ×3 (09:50→17:22)
--- NOTE | 2022-12-26 10:10 | NUR ---
PT EATING IN BED. ATE 100% OF MEAL. NO AGRESSIVE BEHAVIOR NOTED, COOPERATIVE.
--- NOTE | 2022-12-26 11:40 | NUR ---
Spoke to michael Esquivel for patient to have niece visit.
--- NOTE | 2022-12-26 11:46 | NUR ---
PT CALM IN BED, NIECE AT BEDSIDE VISITNG.
--- NOTE | 2022-12-26 11:59 | NUR ---
PT EATING LUNCH, NIECE AT BEDSIDE.
--- NOTE | 2022-12-26 12:04 | NUR ---
Called Dr. Prince office requesting fax of med list. Spoke to
--- NOTE | 2022-12-26 13:11 | NUR ---
RECEIVED CALL FROM GAYLA CHAWLA WHO WORKS WITH [facility] AND WORKS WITH PT DAILY. PER DENTON, NOT IN CONTACT WITH PTS DAUGHTER. CALLED PTS DAUGHTER AND PROVIDED HER WITH PAPI NUMBER: [phone]. PTS HOME HEALTH NURSE (ACES), JARRELL ([phone]) WHO STATES THAT SHE HAS BEEN WORKING WITH [employer] DAILY FOR THE LAST YEAR CAME TO THE ER FOR UPDATES. PER JARRELL, SHE WAS CONTACTED BY BOY ESPINOSA FROM [facility] FOR AN UPDATE. PER JARRELL, SHE IS NOT IN CONTACT WITH PTS DAUGHTER. I PROVIDED PATRICIA, CARROTER WITH ALL CURRENT INFORMATION AND PHONE NUMBERS
--- NOTE | 2022-12-26 15:31 | NUR ---
Spoke to Kelsey at PCP's office, to fax a list of medication. States she will fax it.
--- NOTE | 2022-12-26 16:31 | NUR ---
Received fax from Kelsey at Dr. Estrada's office, will update medication list.
--- NOTE | 2022-12-26 16:41 | NUR ---
FAX RECEIVED FROM PTS DRS OFFICE WAS WALKED OVER AND HANDED TO TAPPER BALANCE WHEEL SCREW HOLE GLENDY. DR GORE AWARE
[2022-12-26] MEDS ORDERED: ATOR20TA PO (17:09)
[2022-12-26] MEDS ORDERED: PREG50CA88 PO (17:09)
[2022-12-26 17:45] VITALS: BP 135/85
--- NOTE | 2022-12-26 18:02 | NUR ---
Patient was offered dinner tray, patient is sitting up eating food.
--- NOTE | 2022-12-26 18:16 | NUR ---
PT ATE 100% OF DINNER. IN BED AWAKE AND SITTING QUIETLY.
--- NOTE | 2022-12-26 19:12 | NUR ---
Spoke to Catie @ [facility]. Patient will be going to [facility], Room 171 under the care of Dr. Holliday. Address is [address] [place] [id number]. Report to be called to [phone]. Requesting a call back once ETA is set up and picking table worker can be at any time.
--- NOTE | 2022-12-26 19:19 | NUR ---
Pt report given to BRENDAN PAUL. Transfer of care at this time.
--- NOTE | 2022-12-26 20:10 | NUR ---
SPOKE WITH JOHANNA SHUKLA FROM [facility] IN [place]. REPORT GIVEN TO JOHANNA SHUKLA.
--- NOTE | 2022-12-26 20:49 | NUR ---
PT TOLERATING FOOD WELL, AWAKE AND ALERT AWAITING TRANSFER
[2022-12-26] MEDS ORDERED: PREGABALIN 50 MG CAP PO SCH (21:00)
--- NOTE | 2022-12-26 21:09 | NUR ---
sarah, daughter of pt updated on pt's transfer to [facility].states she will get in touch with facility. pt updated
--- NOTE | 2022-12-26 21:11 | NUR ---
[facility] AT BEDSIDE
--- NOTE | 2022-12-26 21:29 | NUR ---
Patient to be transferred to [facility]. Is being transferred due to HIGHER LEVEL OF CARE. Receiving facility has accepting physician and available space. ER physician has signed transfer form. Patient or responsible green party has agreed to transfer and signed form. Patient belongings inventoried and will be sent with patient. Copy of nursing notes, lab reports, EKG, Physicians Orders and X-rays to be sent with patient. Report called to JOHANNA SHUKLA at receiving facility. [facility] ambulance service has been called for transfer. ETA is 60 MIN FROM 2009.
--- NOTE | 2022-12-26 21:29 | NUR ---
PT TAKEN BY [facility] TO [facility]
--- NOTE | 2022-12-26 23:19 | NUR ---
12/26/222109 MEDICATION ADMINISTERED LYRICA AND ZYPREXA GIVEN. UNABLE TO CHART MEDICATION DUE TO PT'S TRANSFER. CHARGE NURSE MADE AWARE CESAR SHUKLA. INSTRUCTED TO DOCUMENT IN NOTES OF MEDICATION ADMINISTRATION
[2022-12-27] MEDS ORDERED: ATORVASTATIN 20 MG TAB PO SCH (17:00)
== END 2022-12-26 21:29 ==
LOC: MED 10:58
DX: R45.851 Suicidal ideations (principal); Z20.822 Contact with and (suspected) exposure to COVID-19; F32.9 Major depressive disorder, single episode, unspecified; F19.10 Other psychoactive substance abuse, uncomplicated; E11.9 Type 2 diabetes mellitus without complications; F17.210 Nicotine dependence, cigarettes, uncomplicated; F12.90 Cannabis use, unspecified, uncomplicated; F15.90 Other stimulant use, unspecified, uncomplicated; Z86.73 Personal history of transient ischemic attack (TIA), and cerebral infarction without residual deficits; Z79.899 Other long term (current) drug therapy
CPT/HCPCS: 36415; 80053; 80305; 81003; 85025; 87426; 87635; 96372; 99284; C9803; G0480; G0482; J1630; J2060; U0005

== ENCOUNTER 2023-01-17 10:10 | Emergency (ER) | payer OTHER ==
[~2023-01-17] VITALS: Ht 172.7 cm; Wt 113.4 kg
[~2023-01-17 10:10] MED LIST changes: -ACET-8905 PO; -AMOX-999 PO; +ATOR20TA PO; +BENA-16 PO; -DICL100G5 TP; -OLME20TA75 PO; +PREG50CA88 PO
[2023-01-17 10:33] VITALS: BP 102/56
--- NOTE | 2023-01-17 10:40 | NUR ---
PT BIB AMBULANCE, PRESENTS WITH PAIN ON RT SHOULDER,NECK,BACK OF HEAD,RT KNEE, RT HIP SINCE LAST NIGHT S/P FALL, DENIES LOC, AOX4, PLACE ON MONITOR. SAFETY MAINTAINED. NAD.
--- NOTE | 2023-01-17 10:46 | NUR ---
A/OX4 PLACED ON MONITOR, PULSE OX, CARDIAC, C COLLAR IN PLACE, STATED SHE DONT REMEMBER FALLING LAST NIGHT, C/O RIGHT SHOULDER PAIN, RIGHT HIP PAIN AND BACK OF HEAD, DEFICIT ON LEFT LOWER ARM FROM A PREVIOUS STROKE, USES A SCOOTER TO MOVE AROUND, STATED SHE REFUSED EMS LAST NIGHT CAUSE SHE WAS COOKING, STATED PREVIOUS STROKE A YEAR AGO.
[2023-01-17 11:20] LABS: BASOPHILS % (AUTO) 0.4 % (0.0-2.0); EOSINOPHILS # (AUTO) 0.3 K/uL (0-0.4); EOSINOPHILS % (AUTO) 3.8 % (0.0-4.0); HEMATOCRIT 36.9 % (36-48); HEMOGLOBIN 12.4 g/dL (12.0-16.0); LYMPHOCYTES # (AUTO) 2.2 K/uL (2.5-16.5); LYMPHOCYTES % (AUTO) 28.4 % (20.5-51.1); MEAN CORPUSCULAR HEMOGLOBIN 28 pg (27-31); MEAN CORPUSCULAR HGB CONC 34 g/dL (33-37); MEAN CORPUSCULAR VOLUME 84.1 fL (80-94); MONOCYTES # (AUTO) 0.4 K/uL (0.8-1.0); MONOCYTES % (AUTO) 5.8 % (1.7-9.3); NEUTROPHILS # (AUTO) 4.7 K/uL (1.8-7.7); NEUTROPHILS % (AUTO) 61.6 % (42.2-75.2); PLATELET COUNT (AUTO) 296 K/uL (140-450); RED BLOOD CELL COUNT(AUTO) 4.38 MIL/uL (4.20-5.40); RED CELL DISTRIBUTION WIDTH 13.8 % (11.6-13.7); WHITE BLOOD COUNT (AUTO) 7.7 K/uL (4.8-10.8)
[2023-01-17 11:53] LABS: ANION GAP 11.4 (8-16); ASPARTATE AMINOTRANSFERASE 30 U/L (15-37); CARBON DIOXIDE 26.6 mmol/L (21-32); CHLORIDE 105 mmol/L (98-107); CREATININE 0.8 mg/dL (0.6-1.3); GFR ARICAN-AMERICAN 94 mL/min (>90); GLUCOSE 128 mg/dL (74-106); SODIUM SERUM 139 mmol/L (136-145); TOTAL BILIRUBIN 0.2 mg/dL (0.0-1.0); UREA NITROGEN, BLOOD 17 mg/dL (7-18)
[2023-01-17] MEDS ORDERED: MORPHINE SULFATE 4 MG/ML SYR IVP ONE (12:05)
[2023-01-17] MEDS ORDERED: KETOROLAC 30 MG/ML VIAL IVP ONE (12:40)
[2023-01-17] MEDS ORDERED: LIDOCAINE 5% 1 EA PATCH TP ONE ×2 (12:40→14:11)
[2023-01-17] MEDS ORDERED: IBUP-2213 PO (13:17)
[2023-01-17] MEDS ORDERED: ACET-10509 PO (13:17)
[2023-01-17] MEDS ORDERED: KETOROLAC 30 MG/ML VIAL ONE (14:12)
[2023-01-17] MEDS ORDERED: KETOROLAC 30 MG/ML VIAL IM ONE (14:25)
[2023-01-17 15:26] VITALS: BP 121/81
--- NOTE | 2023-01-17 15:28 | NUR ---
Patient discharged with v/s stable. Written and verbal after care instructions given and explained. Patient alert, oriented and verbalized understanding of instructions. Wheel Chair Assisted with to car. All questions addressed prior to discharge. ID band removed. Patient advised to follow up with PMD. Rx of ACETAMINOPHEN given. Opportunity to ask questions provided and answered.
--- NOTE | 2023-01-17 17:22 | NUR ---
The patient's care was reviewed and supervised by Agency 04 RN, RN.
== END 2023-01-17 17:22 | disposition home or self-care (01) ==
LOC: MED 10:10
DX: S70.01XA Contusion of right hip, initial encounter (principal); S09.90XA Unspecified injury of head, initial encounter; E11.9 Type 2 diabetes mellitus without complications; I10 Essential (primary) hypertension; Z86.73 Personal history of transient ischemic attack (TIA), and cerebral infarction without residual deficits; Z86.69 Personal history of other diseases of the nervous system and sense organs; Z79.899 Other long term (current) drug therapy; Z79.1 Long term (current) use of non-steroidal anti-inflammatories (NSAID); W18.39XA Other fall on same level, initial encounter; Y92.89 Other specified places as the place of occurrence of the external cause; Y93.89 Activity, other specified; Y99.8 Other external cause status
CPT/HCPCS: 36415; 70450; 71045; 72125; 72192; 80053; 84484; 85025; 93005; 96372; 96374; 99285; J1885; J2270; Q0092

== ENCOUNTER 2023-01-24 01:00 | Observation (INO) | payer OTHER ==
[~2023-01-24] VITALS: Ht 162.6 cm; Wt 96.2 kg
[~2023-01-24 01:00] MED LIST changes: +ACET-10509 PO; +IBUP-2213 PO
[2023-01-24 01:05] VITALS: BP 115/67
--- NOTE | 2023-01-24 01:08 | NUR ---
ELVIE BENITO. TAKEN TO BED 1
--- NOTE | 2023-01-24 01:24 | NUR ---
Dr. Hamilton examining patient.
[2023-01-24] MEDS ORDERED: NACL 0.9% 1,000 ML IV ONE (01:30)
--- NOTE | 2023-01-24 01:34 | NUR ---
Blood draw done at bedside.
[2023-01-24 01:46] LABS: BASOPHILS # (AUTO) 0.1 K/uL (0.00-0.22); BASOPHILS % (AUTO) 0.5 % (0.0-2.0); EOSINOPHILS # (AUTO) 0.3 K/uL (0-0.4); HEMATOCRIT 39.3 % (36-48); HEMOGLOBIN 12.9 g/dL (12.0-16.0); LYMPHOCYTES # (AUTO) 2.2 K/uL (2.5-16.5); LYMPHOCYTES % (AUTO) 21.2 % (20.5-51.1); MEAN CORPUSCULAR HEMOGLOBIN 28 pg (27-31); MEAN CORPUSCULAR HGB CONC 33 g/dL (33-37); MEAN CORPUSCULAR VOLUME 86.4 fL (80-94); MONOCYTES # (AUTO) 1.1 K/uL (0.8-1.0); MONOCYTES % (AUTO) 10.6 % (1.7-9.3); NEUTROPHILS # (AUTO) 6.7 K/uL (1.8-7.7); NEUTROPHILS % (AUTO) 64.7 % (42.2-75.2); PLATELET COUNT (AUTO) 330 K/uL (140-450); RED BLOOD CELL COUNT(AUTO) 4.54 MIL/uL (4.20-5.40); RED CELL DISTRIBUTION WIDTH 13.7 % (11.6-13.7); WHITE BLOOD COUNT (AUTO) 10.4 K/uL (4.8-10.8)
--- NOTE | 2023-01-24 01:50 | NUR ---
Patient taken to radiology.
[2023-01-24 02:05] LABS: ALBUMIN 3.1 g/dL (3.4-5.0); ANION GAP 12.6 (8-16); CARBON DIOXIDE 29.1 mmol/L (21-32); CREATININE 1.6 mg/dL (0.6-1.3); POTASSIUM 3.7 mmol/L (3.5-5.1); TOTAL BILIRUBIN 0.2 mg/dL (0.0-1.0)
--- NOTE | 2023-01-24 02:17 | NUR ---
ECG done at bedside.
[2023-01-24 03:24] LABS: APPEARANCE,URINE CLEAR (CLEAR); BILIRUBIN,URINE NEGATIVE (NEGATIVE); BLOOD, URINE NEGATIVE (NEGATIVE); COLOR,URINE YELLOW (YELLOW); LEUKOCYTE ESTERASE ,URINE NEGATIVE (NEGATIVE); NITRITE, URINE NEGATIVE (NEGATIVE); UGLUCOSE NEGATIVE (NEGATIVE)
--- NOTE | 2023-01-24 03:57 | NUR ---
Nasal swab done and specimen sent to lab.
[2023-01-24] MEDS ORDERED: LORazepam 1 MG TAB PO PRN (04:45)
[2023-01-24] MEDS ORDERED: AZITHROMYCIN 500 MG in DEXTROSE 5% 250 ML IV SCH ×2 (04:45→09:00)
[2023-01-24] MEDS ORDERED: ONDANSETRON 4 MG/2 ML VIAL IVP PRN (04:45)
[2023-01-24] MEDS ORDERED: LACTATED RINGERS 1,000 ML IV SCH (04:45)
[2023-01-24] MEDS ORDERED: ZOLPIDEM 5 MG TAB PO PRN (04:45)
[2023-01-24] MEDS ORDERED: HYDROcodone/APAP 5/325 MG 1 TAB TAB PO PRN (04:45)
[2023-01-24] MEDS ORDERED: ACETAMINOPHEN 325 MG TAB PO PRN (04:45)
[2023-01-24] MEDS ORDERED: MORPHINE SULFATE 2 MG/ML SYR IVP PRN (04:45)
--- NOTE | 2023-01-24 05:29 | NUR ---
Patient will be admitted to care of Dr. Blankenship. Admited to [facility]. Will go to room 110B. Belongings list completed. Report to Richi SHUKLA.
--- NOTE | 2023-01-24 05:50 | NUR ---
RECEIVED REPORT FROM ER NURSE FOR CONTINUITY OF CARE. PT IS AWAKE, ALERT AND ORIENTED X4 WITH BRIEF PERIODS OF CONFUSION. CURRENTLY ON ROOM AIR WITH NO APPARENT SIGNS OF ACUTE DISTRESS NOTED. PATIENT STATES NO PAIN AT THIS TIME. IV SITE LOCATED AT RIGHT AC 20 GAUGE, INTACT AND PATENT RUNNING LR @ 80 ML/HR. ORIENTED PATIENT TO BEDROOM, BATHROOM, AND CALL LIGHT, ENCOURAGED TO USE IF ASSISTANCE IS NEEDED.
[2023-01-24 06:00] VITALS: BP 156/75
[2023-01-24] MEDS ORDERED: cefTRIAXone 1,000 MG VIAL ONE (06:54)
--- NOTE | 2023-01-24 07:00 | NUR ---
ADMINISTERED ROCEPHINE IV. PT IS STABLE, AWAKE AND ALERT, PT IS ABLE TO RESPONSE VERBALLY.
--- NOTE | 2023-01-24 07:01 | NUR ---
RECEIVED BEDSIDE REPORT FROM NIGHTSHIFT NURSE. PT IS ASLEEP IN BED, WOKE TO NAME AND TOUCH. NO SIGNS OF DISTRESS, NO REPORTS OF PAIN OR DISCOMFORT. REORIENTED PT TO CALL LIGHT. PT FELL BACK ASLEEP. NO FURTHER NEEDS ARE TO BE MET AT THIS TIME, WILL CONTINUE WITH PT CARE.
[2023-01-24 07:25] LABS: ANION GAP 12.9 (8-16); BASOPHILS % (AUTO) 0.4 % (0.0-2.0); CARBON DIOXIDE 25.6 mmol/L (21-32); CREATININE 1.1 mg/dL (0.6-1.3); EOSINOPHILS # (AUTO) 0.3 K/uL (0-0.4); EOSINOPHILS % (AUTO) 3.1 % (0.0-4.0); HEMATOCRIT 36.9 % (36-48); HEMOGLOBIN 12.1 g/dL (12.0-16.0); LYMPHOCYTES # (AUTO) 2.5 K/uL (2.5-16.5); LYMPHOCYTES % (AUTO) 28.4 % (20.5-51.1); MEAN CORPUSCULAR HEMOGLOBIN 28 pg (27-31); MEAN CORPUSCULAR HGB CONC 33 g/dL (33-37); MEAN CORPUSCULAR VOLUME 86.4 fL (80-94); MONOCYTES # (AUTO) 0.6 K/uL (0.8-1.0); MONOCYTES % (AUTO) 7.2 % (1.7-9.3); NEUTROPHILS # (AUTO) 5.4 K/uL (1.8-7.7); NEUTROPHILS % (AUTO) 60.9 % (42.2-75.2); PLATELET COUNT (AUTO) 292 K/uL (140-450); POTASSIUM 4.5 mmol/L (3.5-5.1); RED BLOOD CELL COUNT(AUTO) 4.27 MIL/uL (4.20-5.40); RED CELL DISTRIBUTION WIDTH 13.9 % (11.6-13.7); WHITE BLOOD COUNT (AUTO) 8.9 K/uL (4.8-10.8)
--- NOTE | 2023-01-24 08:55 | NUR ---
PATIENT HAS BEEN SCREENED AND CATEGORIZED LOW NUTRITION RISK. PATIENT WILL BE SEEN WITHIN 7 DAYS OF ADMISSION. 01/31/[address]
[2023-01-24] MEDS: PHENYTOIN 100 MG CAPER PO SCH ×2 (10:09→14:06)
[2023-01-24 12:00] VITALS: BP 140/68
[2023-01-24 16:54] VITALS: BP 140/68
--- NOTE | 2023-01-24 17:29 | NUR ---
PT INFORMED OF DISCHARGE. DC PAPERWORK SIGNED. PT DAUGHTER AT BEDSIDE, WILL ESCORT AND DRIVE PT BACK HOME. PT'S IV REMOVED, ID BAND REMOVED. PT LEFT UNIT WITH NO SIGNS OF DISTRESS, VITALS ALL STABLE.
[2023-01-24] MEDS ORDERED: ATORVASTATIN 20 MG TAB PO SCH (21:00)
--- NOTE | 2023-02-03 15:04 | NUR ---
CALLED DR ZAMBRANO'S OFFICE AT LOCATED TA [address] [id number]. SPOKE WITH WILLIAMS WHO WAS ABLE TO SCHEDULE A FOLLOW UP APPOINTMENT FOR 01/28/2023 AT 1500.CALLED PATIENT AND INFORMED HER OF THE ABOVE INFORMATION.
== END 2023-01-24 17:27 | disposition home or self-care (01) ==
LOC: MED 01:00 → MTU 04:49
PROVIDERS: ADMIT Hospitalist; ATTEND Hospitalist
DX: I69.954 Hemiplegia and hemiparesis following unspecified cerebrovascular disease affecting left non-dominant side (principal); Z20.822 Contact with and (suspected) exposure to COVID-19; E66.01 Morbid (severe) obesity due to excess calories; R47.81 Slurred speech; N17.9 Acute kidney failure, unspecified; G40.909 Epilepsy, unspecified, not intractable, without status epilepticus; I10 Essential (primary) hypertension; E78.5 Hyperlipidemia, unspecified; Z79.899 Other long term (current) drug therapy
CPT/HCPCS: 36415; 70450; 71045; 72125; 72192; 80048; 80053; 80185; 81003; 83605; 83735; 85025; 87040; 87081; 87086; 87426; 96361; 96365; 96367; 96372; 99285; G0378; J0456; J0696; J1644; J7060; Q0092

== ENCOUNTER 2023-02-03 04:03 | Emergency (ER) | payer OTHER ==
[~2023-02-03] VITALS: Ht 167.6 cm; Wt 97.5 kg
[2023-02-03 04:04] VITALS: BP 118/77
--- NOTE | 2023-02-03 04:09 | NUR ---
ELVIE SPEARS. PLACED IN BED 01.
--- NOTE | 2023-02-03 04:25 | NUR ---
Patient resting in bed, A/Ox4, chest rise and fall symmetrical, no s/s of distress, on monitor.
--- NOTE | 2023-02-03 04:26 | NUR ---
ER physician, Dr. Garcia, at bedside assessing patient.
[2023-02-03] MEDS ORDERED: KETOROLAC 60 MG/2 ML VIAL IM ONE (04:30)
[2023-02-03] MEDS ORDERED: IBUP-2213 PO (04:35)
--- NOTE | 2023-02-03 05:06 | NUR ---
Patient resting in bed, A/Ox4, chest rise and fall symmetrical, no c/o pain or s/s of distress, on monitor.
--- NOTE | 2023-02-03 07:12 | NUR ---
Patient resting in bed, A/Ox4, chest rise and fall symmetrical, no c/o pain or s/s of distress, on monitor.
--- NOTE | 2023-02-03 07:14 | NUR ---
Pt report given to Faye SHUKLA. Faye SHUKLA verbalized uderstanding of report, no further questions.
--- NOTE | 2023-02-03 09:39 | NUR ---
Juan Garrido stated it is not an assisted living facility and pt has no block captain at facility
--- NOTE | 2023-02-03 09:40 | NUR ---
called daughter left message to call [facility] for update on patient "mother".
[2023-02-03 09:48] VITALS: BP 111/59
--- NOTE | 2023-02-03 09:48 | NUR ---
Patient discharged with v/s stable. Written and verbal after care instructions given and explained. Patient alert, oriented and verbalized understanding of instructions. Ambulance Transport with steady gait. All questions addressed prior to discharge. ID band removed. Patient advised to follow up with PMD. Rx of ibuprofen given. Patient educated on indication of medication including possible reaction and side effects. Opportunity to ask questions provided and answered.
--- NOTE | 2023-02-03 09:48 | NUR ---
SUDEEP Ceja PATIENT
== END 2023-02-03 09:48 | disposition home or self-care (01) ==
LOC: MED 04:03
DX: S01.01XA Laceration without foreign body of scalp, initial encounter (principal); M54.2 Cervicalgia; F17.200 Nicotine dependence, unspecified, uncomplicated; F03.90 Unspecified dementia, unspecified severity, without behavioral disturbance, psychotic disturbance, mood disturbance, and anxiety; I10 Essential (primary) hypertension; Z86.73 Personal history of transient ischemic attack (TIA), and cerebral infarction without residual deficits; Z98.890 Other specified postprocedural states; Z79.899 Other long term (current) drug therapy; W19.XXXA Unspecified fall, initial encounter; Y93.89 Activity, other specified; Y92.89 Other specified places as the place of occurrence of the external cause; Y99.8 Other external cause status
CPT/HCPCS: 12001; 90471; 90715; 96372; 99285; J1885

== ENCOUNTER 2023-05-21 19:03 | Emergency (ER) | payer OTHER ==
[~2023-05-21] VITALS: Ht 165.1 cm; Wt 95.3 kg
[~2023-05-21 19:03] MED LIST changes: +PREG50CA PO; -PREG50CA88 PO
[2023-05-21 19:27] VITALS: BP 112/75; PULSE 80; RESP 17; TEMP 97.6; O2SAT 98
[2023-05-21] MEDS ORDERED: DEXAMETHASONE 10 MG/ML VIAL IVP ONE (20:10)
[2023-05-21] MEDS ORDERED: FAMOTIDINE 20 MG/2 ML VIAL IVP ONE (20:10)
[2023-05-21] MEDS ORDERED: diphenhydrAMINE 50 MG/ML VIAL IVP ONE (20:10)
[2023-05-21 20:41] LABS: BASOPHILS % (AUTO) 0.5 % (0.0-2.0); EOSINOPHILS # (AUTO) 0.3 K/uL (0-0.4); EOSINOPHILS % (AUTO) 3.5 % (0.0-4.0); HEMATOCRIT 39.9 % (36-48); HEMOGLOBIN 13.2 g/dL (12.0-16.0); LYMPHOCYTES # (AUTO) 2.7 K/uL (2.5-16.5); LYMPHOCYTES % (AUTO) 31.8 % (20.5-51.1); MEAN CORPUSCULAR HEMOGLOBIN 28 pg (27-31); MEAN CORPUSCULAR HGB CONC 33 g/dL (33-37); MEAN CORPUSCULAR VOLUME 84.2 fL (80-94); MONOCYTES # (AUTO) 0.6 K/uL (0.8-1.0); MONOCYTES % (AUTO) 6.9 % (1.7-9.3); NEUTROPHILS # (AUTO) 4.9 K/uL (1.8-7.7); NEUTROPHILS % (AUTO) 57.3 % (42.2-75.2); PLATELET COUNT (AUTO) 306 K/uL (140-450); RED BLOOD CELL COUNT(AUTO) 4.74 MIL/uL (4.20-5.40); RED CELL DISTRIBUTION WIDTH 13.2 % (11.6-13.7); WHITE BLOOD COUNT (AUTO) 8.6 K/uL (4.8-10.8)
[2023-05-21 21:11] LABS: ALBUMIN 3.4 g/dL (3.4-5.0); ANION GAP 8.2 (8-16); CALCIUM 9.6 mg/dL (8.5-10.1); CARBON DIOXIDE 30.3 mmol/L (21-32); CREATININE 0.9 mg/dL (0.6-1.3); POTASSIUM 3.5 mmol/L (3.5-5.1); TOTAL BILIRUBIN 0.1 mg/dL (0.0-1.0); TOTAL PROTEIN, SERUM 7.6 g/dL (6.4-8.2)
[2023-05-21] MEDS ORDERED: PRED10TA5 PO (23:25)
[2023-05-21] MEDS ORDERED: ACET-2619 PO (23:25)
[2023-05-21] MEDS ORDERED: BEN50 PO (23:25)
[2023-05-22] VITALS: BP 138/72; PULSE 86; RESP 16; TEMP 98.2; O2SAT 98
== END 2023-05-22 | disposition home or self-care (01) ==
LOC: MED 19:03
DX: K13.0 Diseases of lips (principal); M25.562 Pain in left knee; M25.572 Pain in left ankle and joints of left foot; E11.9 Type 2 diabetes mellitus without complications; I10 Essential (primary) hypertension; F03.90 Unspecified dementia, unspecified severity, without behavioral disturbance, psychotic disturbance, mood disturbance, and anxiety; Z86.73 Personal history of transient ischemic attack (TIA), and cerebral infarction without residual deficits; Z86.69 Personal history of other diseases of the nervous system and sense organs; Z79.899 Other long term (current) drug therapy; Z79.1 Long term (current) use of non-steroidal anti-inflammatories (NSAID)
CPT/HCPCS: 36415; 73562; 80053; 85025; 96374; 96375; 99284; J1100; J1200; J3490; Q0092

== ENCOUNTER 2023-06-29 00:21 | Emergency (ER) | payer OTHER ==
[~2023-06-29] VITALS: Ht 167.6 cm; Wt 135.2 kg
[~2023-06-29 00:21] MED LIST changes: +ACET-2619 PO; +BEN50 PO; +PRED10TA5 PO
[2023-06-29 00:27] VITALS: BP 107/63; PULSE 97; RESP 17; TEMP 97.8; O2SAT 97
[2023-06-29] MEDS ORDERED: ACETAMINOPHEN EXTRA STRENGTH 500 MG TAB PO ONE (00:40)
[2023-06-29 01:15] LABS: BASOPHILS % (AUTO) 0.4 % (0.0-2.0); EOSINOPHILS # (AUTO) 0.3 K/uL (0-0.4); EOSINOPHILS % (AUTO) 3.3 % (0.0-4.0); HEMATOCRIT 41.6 % (36-48); HEMOGLOBIN 13.6 g/dL (12.0-16.0); LYMPHOCYTES % (AUTO) 29.8 % (20.5-51.1); MEAN CORPUSCULAR HEMOGLOBIN 28 pg (27-31); MEAN CORPUSCULAR HGB CONC 33 g/dL (33-37); MEAN CORPUSCULAR VOLUME 85.7 fL (80-94); MONOCYTES # (AUTO) 0.6 K/uL (0.8-1.0); NEUTROPHILS % (AUTO) 60.5 % (42.2-75.2); PLATELET COUNT (AUTO) 326 K/uL (140-450); RED BLOOD CELL COUNT(AUTO) 4.86 MIL/uL (4.20-5.40); RED CELL DISTRIBUTION WIDTH 13.8 % (11.6-13.7)
[2023-06-29 01:36] LABS: ALBUMIN 3.5 g/dL (3.4-5.0); ANION GAP 11.5 (8-16); CARBON DIOXIDE 29.9 mmol/L (21-32); CREATININE 0.9 mg/dL (0.6-1.3); POTASSIUM 3.4 mmol/L (3.5-5.1); TOTAL BILIRUBIN 0.1 mg/dL (0.0-1.0); TOTAL PROTEIN, SERUM 8.1 g/dL (6.4-8.2)
[2023-06-29 01:44] LABS: CALCIUM 8.7 mg/dL (8.5-10.1)
[2023-06-29] MEDS ORDERED: ACET-10509 PO (04:41)
[2023-06-29 05:35] VITALS: BP 112/76; PULSE 97; RESP 17; TEMP 97.8; O2SAT 97
== END 2023-06-29 05:35 | disposition home or self-care (01) ==
LOC: MED 00:21
DX: S09.90XA Unspecified injury of head, initial encounter (principal); Z20.822 Contact with and (suspected) exposure to COVID-19; E11.9 Type 2 diabetes mellitus without complications; I10 Essential (primary) hypertension; F03.90 Unspecified dementia, unspecified severity, without behavioral disturbance, psychotic disturbance, mood disturbance, and anxiety; Z86.73 Personal history of transient ischemic attack (TIA), and cerebral infarction without residual deficits; Z86.69 Personal history of other diseases of the nervous system and sense organs; Z79.899 Other long term (current) drug therapy; Z79.1 Long term (current) use of non-steroidal anti-inflammatories (NSAID); W18.39XA Other fall on same level, initial encounter; Y92.89 Other specified places as the place of occurrence of the external cause; Y93.89 Activity, other specified; Y99.8 Other external cause status
CPT/HCPCS: 36415; 70450; 71045; 80053; 84484; 85025; 87426; 93005; 99285; Q0092

== ENCOUNTER 2023-06-29 21:26 | Emergency (ER) | payer OTHER ==
[~2023-06-29] VITALS: Ht 162.6 cm; Wt 81.6 kg
[2023-06-29 21:26] VITALS: BP 133/71; PULSE 92; RESP 16; TEMP 97.9; O2SAT 98
[2023-06-29] MEDS ORDERED: FLUORESCEIN OPTH STRIP 1 MG ONE (21:44)
[2023-06-29] MEDS ORDERED: FLUORESCEIN OPTH STRIP 1 MG OP ONE (21:50)
[2023-06-29] MEDS ORDERED: TETRACAINE HCL/PF 0.5% OPTH 4 ML BTL OP ONE (21:50)
[2023-06-29 22:24] VITALS: BP 133/71; PULSE 92; RESP 16; TEMP 97.9; O2SAT 98
== END 2023-06-29 22:24 | disposition home or self-care (01) ==
LOC: MED 21:26
DX: H57.11 Ocular pain, right eye (principal); I10 Essential (primary) hypertension; F03.90 Unspecified dementia, unspecified severity, without behavioral disturbance, psychotic disturbance, mood disturbance, and anxiety; E11.9 Type 2 diabetes mellitus without complications; Z86.73 Personal history of transient ischemic attack (TIA), and cerebral infarction without residual deficits; Z79.899 Other long term (current) drug therapy; Z79.4 Long term (current) use of insulin
CPT/HCPCS: 99283

== ENCOUNTER 2023-07-15 12:03 | Inpatient (IN) | payer OTHER ==
[~2023-07-15] VITALS: Ht 170.2 cm; Wt 81.6 kg
[2023-07-15 12:08] VITALS: BP 133/82; RESP 18; TEMP 98.1; O2SAT 96
[2023-07-15] MEDS ORDERED: MORPHINE SULFATE 4 MG/ML SYR IM ONE (12:15)
[2023-07-15 14:45] VITALS: O2SAT 96
[2023-07-15 16:44] VITALS: O2SAT 96
[2023-07-15 17:47] LABS: APPEARANCE,URINE CLEAR (CLEAR); BILIRUBIN,URINE NEGATIVE (NEGATIVE); BLOOD, URINE NEGATIVE (NEGATIVE); COLOR,URINE YELLOW (YELLOW); LEUKOCYTE ESTERASE ,URINE NEGATIVE (NEGATIVE); NITRITE, URINE NEGATIVE (NEGATIVE); PROTEIN,URINE NEGATIVE (NEGATIVE); UGLUCOSE NEGATIVE (NEGATIVE); UROBILINOGEN,URINE 0.2 EU/dL (0.2 - 1)
[2023-07-15] MEDS ORDERED: MAGNESIUM OXIDE 400 MG TAB PO PRN (18:30)
[2023-07-15] MEDS ORDERED: KCL 20 MEQ IN 100 mL PREMIX 200 ML IV PRN (18:30)
[2023-07-15] MEDS ORDERED: ONDANSETRON 4 MG/2 ML VIAL IVP PRN (18:30)
[2023-07-15] MEDS ORDERED: MAG SULF 2000 MG/WATER PREMIX 50 ML IV PRN (18:30)
[2023-07-15] MEDS ORDERED: POTASSIUM CHLORIDE 10 MEQ TABER PO PRN (18:30)
[2023-07-15] MEDS ORDERED: ACETAMINOPHEN 325 MG TAB PO PRN (18:30)
[2023-07-15 18:46] VITALS: O2SAT 96
[2023-07-15 21:26] VITALS: O2SAT 96
[2023-07-15] MEDS: HYDROcodone/APAP 5/325 MG 1 TAB TAB PO PRN (21:44)
[2023-07-15] MEDS: MORPHINE SULFATE 4 MG/ML SYR IVP PRN (22:36)
[2023-07-15] MEDS: NACL 0.9% 1,000 ML IV SCH (22:52)
[2023-07-16 02:59] VITALS: O2SAT 96
[2023-07-16] MEDS: MORPHINE SULFATE 4 MG/ML SYR IVP PRN (05:38)
[2023-07-16 05:55] VITALS: O2SAT 99
[2023-07-16 06:47] LABS: BASOPHILS % (AUTO) 0.4 % (0.0-2.0); EOSINOPHILS # (AUTO) 0.2 K/uL (0-0.4); EOSINOPHILS % (AUTO) 2.7 % (0.0-4.0); HEMATOCRIT 40.5 % (36-48); HEMOGLOBIN 13.2 g/dL (12.0-16.0); LYMPHOCYTES # (AUTO) 2.7 K/uL (2.5-16.5); MEAN CORPUSCULAR HEMOGLOBIN 28 pg (27-31); MEAN CORPUSCULAR HGB CONC 33 g/dL (33-37); MEAN CORPUSCULAR VOLUME 86.2 fL (80-94); MONOCYTES # (AUTO) 0.9 K/uL (0.8-1.0); MONOCYTES % (AUTO) 10.3 % (1.7-9.3); NEUTROPHILS # (AUTO) 4.8 K/uL (1.8-7.7); NEUTROPHILS % (AUTO) 55.6 % (42.2-75.2); PLATELET COUNT (AUTO) 268 K/uL (140-450); RED CELL DISTRIBUTION WIDTH 14.1 % (11.6-13.7); WHITE BLOOD COUNT (AUTO) 8.6 K/uL (4.8-10.8)
[2023-07-16 07:02] LABS: ANION GAP 12.4 (8-16); CALCIUM 8.6 mg/dL (8.5-10.1); CARBON DIOXIDE 24.8 mmol/L (21-32); CREATININE 0.7 mg/dL (0.6-1.3); POTASSIUM 4.2 mmol/L (3.5-5.1)
[2023-07-16 07:04] LABS: PHOSPHORUS 4.1 mg/dL (2.5-4.9)
[2023-07-16 07:40] VITALS: O2SAT 99
[2023-07-16] MEDS: NACL 0.9% 1,000 ML IV SCH (08:15)
[2023-07-16] MEDS: HYDROcodone/APAP 5/325 MG 1 TAB TAB PO PRN (08:41)
[2023-07-16] MEDS ORDERED: [UNRECOGNIZED DRUG - CODE] PO (16:52)
[2023-07-16 17:13] VITALS: BP 126/78; PULSE 72; RESP 14; TEMP 97.8
[2023-07-16 17:34] VITALS: BP 126/78; PULSE 69; RESP 18; O2SAT 94
== END 2023-07-16 17:29 | disposition home or self-care (01) | DRG 144 ==
LOC: MED 12:03 → MMU 18:33 → OBSVTOIN 18:33
PROVIDERS: ADMIT Hospitalist; ATTEND Hospitalist
DX: S22.31XA Fracture of one rib, right side, initial encounter for closed fracture (principal); E78.5 Hyperlipidemia, unspecified; I10 Essential (primary) hypertension; W18.39XA Other fall on same level, initial encounter; R06.03 Acute respiratory distress; G62.9 Polyneuropathy, unspecified; Z79.1 Long term (current) use of non-steroidal anti-inflammatories (NSAID); Z79.899 Other long term (current) drug therapy; Y93.89 Activity, other specified; Y92.89 Other specified places as the place of occurrence of the external cause; Y99.8 Other external cause status
CPT/HCPCS: 36415; 70450; 71250; 72125; 80048; 81003; 83735; 84100; 85025; 96372; 96374; 99285; J1644; J2270

== ENCOUNTER 2023-09-15 15:59 | Emergency (ER) | payer OTHER ==
[~2023-09-15] VITALS: Ht 162.6 cm; Wt 81.6 kg
[~2023-09-15 15:59] MED LIST changes: +[UNRECOGNIZED DRUG - CODE] PO
[2023-09-15 16:21] VITALS: BP 143/85; PULSE 82; RESP 18; TEMP 98; O2SAT 97
[2023-09-15] MEDS ORDERED: ACETAMINOPHEN EXTRA STRENGTH 500 MG TAB PO ONE (18:15)
[2023-09-15] MEDS ORDERED: ACETAMINOPHEN EXTRA STRENGTH 500 MG TAB ONE (19:32)
[2023-09-15] MEDS ORDERED: ACET-10509 PO (19:40)
[2023-09-15] MEDS ORDERED: LID5T TP (19:40)
[2023-09-15 20:38] VITALS: BP 148/73; PULSE 64; RESP 18; TEMP 98; O2SAT 99
== END 2023-09-15 20:38 | disposition home or self-care (01) ==
LOC: MED 15:59
DX: S09.90XA Unspecified injury of head, initial encounter (principal); M25.551 Pain in right hip; E11.9 Type 2 diabetes mellitus without complications; I10 Essential (primary) hypertension; M54.50 Low back pain, unspecified; R29.810 Facial weakness; F03.90 Unspecified dementia, unspecified severity, without behavioral disturbance, psychotic disturbance, mood disturbance, and anxiety; Z86.73 Personal history of transient ischemic attack (TIA), and cerebral infarction without residual deficits; Z86.69 Personal history of other diseases of the nervous system and sense organs; Z79.899 Other long term (current) drug therapy; Z79.1 Long term (current) use of non-steroidal anti-inflammatories (NSAID); V00.811A Fall from moving wheelchair (powered), initial encounter; Y93.89 Activity, other specified; Y92.89 Other specified places as the place of occurrence of the external cause; Y99.8 Other external cause status
CPT/HCPCS: 70450; 72125; 72131; 99284

== ENCOUNTER 2023-10-21 16:43 | Emergency (ER) | payer OTHER ==
[~2023-10-21] VITALS: Ht 165.1 cm; Wt 111.1 kg
[~2023-10-21 16:43] MED LIST changes: +LID5T TP
[2023-10-21 16:45] VITALS: BP 142/93; PULSE 86; RESP 20; TEMP 98.3; O2SAT 100
[2023-10-21 17:56] LABS: BASOPHILS # (AUTO) 0.1 K/uL (0.00-0.22); BASOPHILS % (AUTO) 0.6 % (0.0-2.0); EOSINOPHILS # (AUTO) 0.3 K/uL (0-0.4); EOSINOPHILS % (AUTO) 3.2 % (0.0-4.0); HEMATOCRIT 41.1 % (36-48); LYMPHOCYTES # (AUTO) 2.6 K/uL (2.5-16.5); LYMPHOCYTES % (AUTO) 26.1 % (20.5-51.1); MEAN CORPUSCULAR HEMOGLOBIN 29 pg (27-31); MEAN CORPUSCULAR HGB CONC 34 g/dL (33-37); MEAN CORPUSCULAR VOLUME 85.4 fL (80-94); MONOCYTES # (AUTO) 0.7 K/uL (0.8-1.0); MONOCYTES % (AUTO) 7.5 % (1.7-9.3); NEUTROPHILS # (AUTO) 6.2 K/uL (1.8-7.7); NEUTROPHILS % (AUTO) 62.6 % (42.2-75.2); PLATELET COUNT (AUTO) 281 K/uL (140-450); RED BLOOD CELL COUNT(AUTO) 4.81 MIL/uL (4.20-5.40); RED CELL DISTRIBUTION WIDTH 12.9 % (11.6-13.7); WHITE BLOOD COUNT (AUTO) 9.9 K/uL (4.8-10.8)
[2023-10-21 18:10] LABS: ANION GAP 11.3 (8-16); CALCIUM 8.8 mg/dL (8.5-10.1); CARBON DIOXIDE 28.4 mmol/L (21-32); CREATININE 0.7 mg/dL (0.6-1.3); POTASSIUM 3.7 mmol/L (3.5-5.1)
[2023-10-21 18:12] LABS: APPEARANCE,URINE CLEAR (CLEAR); BILIRUBIN,URINE NEGATIVE (NEGATIVE); BLOOD, URINE NEGATIVE (NEGATIVE); COLOR,URINE YELLOW (YELLOW); LEUKOCYTE ESTERASE ,URINE NEGATIVE (NEGATIVE); NITRITE, URINE NEGATIVE (NEGATIVE); PROTEIN,URINE NEGATIVE (NEGATIVE); UGLUCOSE NEGATIVE (NEGATIVE); UROBILINOGEN,URINE 0.2 EU/dL (0.2 - 1)
[2023-10-21 18:16] LABS: ALBUMIN 2.9 g/dL (3.4-5.0); TOTAL BILIRUBIN 0.1 mg/dL (0.0-1.0); TOTAL PROTEIN, SERUM 8.2 g/dL (6.4-8.2)
[2023-10-21] MEDS ORDERED: MELO-174 PO (19:20)
[2023-10-21] MEDS ORDERED: ONDA-188 SL (19:20)
[2023-10-21] MEDS: HYDROcodone/APAP 5/325 MG 1 TAB TAB PO ONE (19:33)
[2023-10-21] MEDS: ONDANSETRON 4 MG ODT PO ONE (19:34)
[2023-10-21 20:09] VITALS: BP 125/67; PULSE 74; RESP 12; TEMP 98.3; O2SAT 100
== END 2023-10-21 20:09 | disposition home or self-care (01) ==
LOC: MED 16:43
DX: S09.90XA Unspecified injury of head, initial encounter (principal); M25.512 Pain in left shoulder; M54.2 Cervicalgia; E11.9 Type 2 diabetes mellitus without complications; I10 Essential (primary) hypertension; F03.90 Unspecified dementia, unspecified severity, without behavioral disturbance, psychotic disturbance, mood disturbance, and anxiety; Z86.73 Personal history of transient ischemic attack (TIA), and cerebral infarction without residual deficits; Z79.4 Long term (current) use of insulin; Z79.899 Other long term (current) drug therapy; W18.30XA Fall on same level, unspecified, initial encounter; Y93.89 Activity, other specified; Y92.89 Other specified places as the place of occurrence of the external cause; Y99.8 Other external cause status
CPT/HCPCS: 36415; 70450; 72125; 73030; 80048; 80076; 81003; 85025; 99284; Q0162

== ENCOUNTER 2023-10-28 13:10 | Emergency (ER) | payer OTHER ==
[~2023-10-28] VITALS: Ht 167.6 cm; Wt 122.5 kg
[~2023-10-28 13:10] MED LIST changes: +MELO-174 PO; +ONDA-188 SL
[2023-10-28 13:16] VITALS: BP 150/89; PULSE 96; RESP 20; TEMP 97.1; O2SAT 96
[2023-10-28] MEDS: ACETAMINOPHEN EXTRA STRENGTH 500 MG TAB PO ONE (14:55)
== END 2023-10-28 15:15 | disposition home or self-care (01) ==
LOC: MED 13:10
DX: S01.112A Laceration without foreign body of left eyelid and periocular area, initial encounter (principal); F03.90 Unspecified dementia, unspecified severity, without behavioral disturbance, psychotic disturbance, mood disturbance, and anxiety; I10 Essential (primary) hypertension; E11.9 Type 2 diabetes mellitus without complications; Z86.73 Personal history of transient ischemic attack (TIA), and cerebral infarction without residual deficits; Z79.4 Long term (current) use of insulin; Z79.899 Other long term (current) drug therapy; W01.198A Fall on same level from slipping, tripping and stumbling with subsequent striking against other object, initial encounter; Y93.89 Activity, other specified; Y92.89 Other specified places as the place of occurrence of the external cause; Y99.8 Other external cause status
CPT/HCPCS: 99283

== ENCOUNTER 2023-11-14 07:00 | Emergency (ER) | payer OTHER ==
[~2023-11-14] VITALS: Ht 165.1 cm; Wt 108.9 kg
[2023-11-14 07:31] VITALS: BP 135/78; PULSE 81; RESP 15; TEMP 97; O2SAT 100
[2023-11-14 07:53] VITALS: TEMP 97
[2023-11-14 09:45] LABS: HIV RAPID SCREEN NON-REACTIVE (NON REACTIV)
[2023-11-14 09:51] LABS: APPEARANCE,URINE CLEAR (CLEAR); BILIRUBIN,URINE NEGATIVE (NEGATIVE); BLOOD, URINE NEGATIVE (NEGATIVE); COLOR,URINE YELLOW (YELLOW); LEUKOCYTE ESTERASE ,URINE NEGATIVE (NEGATIVE); NITRITE, URINE NEGATIVE (NEGATIVE); PH,URINE 6.5 (5.0-9.0); PROTEIN,URINE NEGATIVE (NEGATIVE); UGLUCOSE NEGATIVE (NEGATIVE); UROBILINOGEN,URINE 0.2 EU/dL (0.2 - 1)
[2023-11-14 10:25] LABS: RAPID PLASMA REAGIN NON-REACTIVE (Non Reactiv)
[2023-11-14 10:47] VITALS: BP 147/90; PULSE 87; RESP 19; O2SAT 99
== END 2023-11-14 10:49 | disposition home or self-care (01) ==
LOC: MED 07:00
DX: T74.21XA Adult sexual abuse, confirmed, initial encounter (principal); E11.9 Type 2 diabetes mellitus without complications; I10 Essential (primary) hypertension; F03.90 Unspecified dementia, unspecified severity, without behavioral disturbance, psychotic disturbance, mood disturbance, and anxiety; F17.200 Nicotine dependence, unspecified, uncomplicated; Z86.69 Personal history of other diseases of the nervous system and sense organs; Z98.890 Other specified postprocedural states; Z86.73 Personal history of transient ischemic attack (TIA), and cerebral infarction without residual deficits; Z79.899 Other long term (current) drug therapy
CPT/HCPCS: 81003; 86592; 87491; 99283; 99284

== ENCOUNTER 2023-11-16 14:36 | Emergency (ER) | payer OTHER | END 2023-11-16 17:11 | disposition left against medical advice (07) | LOC: MED 14:36 | DX: R10.2 Pelvic and perineal pain (principal); Z53.21 Procedure and treatment not carried out due to patient leaving prior to being seen by health care provider ==